=== PATIENT | female | born 1960 | race Caucasian/White ===

== ENCOUNTER → 2016-10-03 | Outpatient (CLI) | payer BC ==
[2016-09-18 15:00] VITALS: BP 95/53
[~2016-10-03] MED LIST: ACET325T9 PO; CITA20TA5 PO; CLOP75TA27 PO; FERR325T31 PO; Fentanyl TD; GABA-586 PO; GABA800T2 PO; HYDR-2666 PO; INSU100C4 SQ; INSU100V13 SQ; INSU100V8 SQ; Insulin Detemir SQ; LEVE10007 PO; LEVE100S8 PO; LISI10TA2 PO; METH-38 PO; MULT-98 PO; NAPR500T3 PO; ONDA4TAB10 SL; OXYC-323 PO; POTA20TA12 PO; PRAV20TA2 PO; TOPI100T39 PO; TOPI50TA38 PO; VENL75CA PO; ZOLP10TA4 PO
--- NOTE | 2016-10-03 11:05 | KCIC ---
LUMBAR SPINE, THREE VIEWS, 10/03/2016: History: Back pain, recent fall, previous surgery Comparison is made to a study from 08/13/2016. There are bilateral pedicle screws at L4, L5 and S1 attached to longitudinally oriented posterior fixation rods. Partially radiopaque disc spacers are present at L4-5 and L5-S1. These findings are unchanged. There is grade 1 spondylolisthesis at L4-5 and L5-S1, also unchanged. No recent fracture or new abnormality is identified. Moderate aortoiliac calcific plaquing is present. IMPRESSION: 1. Previous posterior spinal fusion with instrumentation from L4 through S1. 2. Grade 1 spondylolisthesis at L4-5 and L5-S1. 3. No significant change since 08/13/2016. Electronically signed by: Flo Good MD (Oct 03, 2016 11:00:44)
== END | disposition home or self-care (01) ==
LOC: KCIC 10:19
PROVIDERS: ATTEND Neurological Surgery
DX: M54.5 Low back pain (principal); W00.0XXA Fall on same level due to ice and snow, initial encounter; M43.16 Spondylolisthesis, lumbar region
CPT/HCPCS: 72100

== ENCOUNTER → 2017-10-29 | Outpatient (CLI) | payer MEDICARE ==
[~2017-10-29] MED LIST changes: -ACET325T9 PO; -CITA20TA5 PO; -CLOP75TA27 PO; -FERR325T31 PO; -Fentanyl TD; -GABA-586 PO; -GABA800T2 PO; -HYDR-2666 PO; -INSU100C4 SQ; -INSU100V13 SQ; -INSU100V8 SQ; -Insulin Detemir SQ; -LEVE10007 PO; -LEVE100S8 PO; +LIDOCAINE 2%/EPI 1:100,000 20 ML VIAL. IJ; -LISI10TA2 PO; -METH-38 PO; -MULT-98 PO; -NAPR500T3 PO; -ONDA4TAB10 SL; -OXYC-323 PO; -POTA20TA12 PO; -PRAV20TA2 PO; -TOPI100T39 PO; -TOPI50TA38 PO; -VENL75CA PO; -ZOLP10TA4 PO
== END | disposition home or self-care (01) ==
LOC: US 13:37
DX: C50.812 Malignant neoplasm of overlapping sites of left female breast (principal); E78.00 Pure hypercholesterolemia, unspecified; E11.9 Type 2 diabetes mellitus without complications; F41.9 Anxiety disorder, unspecified; F32.9 Major depressive disorder, single episode, unspecified; D64.9 Anemia, unspecified; Z87.39 Personal history of other diseases of the musculoskeletal system and connective tissue; Z86.69 Personal history of other diseases of the nervous system and sense organs; Z86.73 Personal history of transient ischemic attack (TIA), and cerebral infarction without residual deficits; Z90.49 Acquired absence of other specified parts of digestive tract; Z90.710 Acquired absence of both cervix and uterus
CPT/HCPCS: 19081; 76942; 77065; 88305; 88361; C1713

== ENCOUNTER → 2017-11-11 | Outpatient (CLI) | payer MEDICARE | END | disposition home or self-care (01) | LOC: NM 09:03 | DX: C50.912 Malignant neoplasm of unspecified site of left female breast (principal); M54.9 Dorsalgia, unspecified; E11.9 Type 2 diabetes mellitus without complications; R56.9 Unspecified convulsions; Z87.891 Personal history of nicotine dependence | CPT/HCPCS: 71046; 78306; 96374; A9503 ==

== ENCOUNTER 2017-12-04 08:33 | Observation (INO) | payer MEDICARE ==
[2017-12-04] MEDS: LIDOCAINE WITH 8.4% SOD BICARB 3 ML DISP.SYRIN. INJ ×3 (08:30→11:35)
[~2017-12-04 08:33] MED LIST changes: +IV RINGERS,LACTATED 1000ML 1,000 ML IV; +LIDOCAINE 1% PF 2 ML VIAL. ID; -LIDOCAINE 2%/EPI 1:100,000 20 ML VIAL. IJ; +MORPHINE SULFATE 2 MG/ML DISP.SYRIN. IV; +fentaNYL PF VIAL 100 MCG/2 ML VIAL IV
[2017-12-04 09:34] LABS: ADD MAN DIFF? NO
[2017-12-04 09:40] LABS: BASO # 0.1 x10^3/uL (0.0-0.2); BASO % 1 % (0-3); EOS # 0.4 x10^3/uL (0.0-0.7); EOS % 5 % (0-3); HEMATOCRIT 39.1 % (36.0-47.0); HEMOGLOBIN 13.2 g/dL (12.0-15.5); LYMPH # 2.6 x10^3/uL (1.0-4.8); LYMPH % 31 % (24-48); MEAN CORPUSCULAR HEMOGLOBIN 30 pg (25-35); MEAN CORPUSCULAR HGB CONC 34 g/dL (31-37); MEAN CORPUSCULAR VOLUME 89 fL (79-100); MONO # 0.6 x10^3/uL (0.0-1.1); MONO % 7 % (0-9); NEUT # 4.8 x10^3uL (1.8-7.7); NEUT % 56 % (31-73); PLATELET COUNT 236 x10^3/uL (140-400); RED BLOOD COUNT 4.37 x10^6/uL (3.50-5.40); RED CELL DISTRIBUTION WIDTH 13.2 % (11.5-14.5); WHITE BLOOD COUNT 8.6 x10^3/uL (4.0-11.0)
[2017-12-04 09:51] LABS: ANION GAP 11 (6-14); BLOOD UREA NITROGEN 7 mg/dL (7-20); BUN/CREATININE RATIO 7 (6-20); CARBON DIOXIDE 27 mmol/L (21-32); CHLORIDE 103 mmol/L (98-107); GFR 56.9; GLUCOSE 108 mg/dL (70-99); POTASSIUM 3.4 mmol/L (3.5-5.1); SODIUM 141 mmol/L (136-145)
[2017-12-04 10:01] LABS: ALBUMIN 3.5 g/dL (3.4-5.0); ALBUMIN/GLOBULIN RATIO 0.9 (1.0-1.7); ALK PHOS 72 U/L (46-116); ALT (SGPT) 27 U/L (14-59); AST (SGOT) 16 U/L (15-37); TOTAL BILIRUBIN 0.3 mg/dL (0.2-1.0); TOTAL PROTEIN 7.4 g/dL (6.4-8.2)
[2017-12-04] MEDS ORDERED: PROPOFOL 20 ML IV (11:45)
[2017-12-04] MEDS ORDERED: fentaNYL PF VIAL 100 MCG/2 ML VIAL ×3 (11:45→15:59)
[2017-12-04] MEDS ORDERED: LIDOCAINE 1% PF 5 ML VIAL. (11:45)
[2017-12-04] MEDS ORDERED: ONDANSETRON PF 4 MG/2 ML VIAL. (12:56)
[2017-12-04] MEDS ORDERED: DEXAMETHASONE SOD PHOS 20 MG/5 ML VIAL. (12:56)
[2017-12-04] MEDS ORDERED: MIDAZOLAM HCL/PF 2 MG/2 ML VIAL. (12:56)
[2017-12-04] MEDS: ISOSULFAN BLUE 50 MG/5 ML VIAL. SQ (13:37)
[2017-12-04] MEDS: BUPIVACAINE-EPI 0.25%-1:200000 50 ML VIAL. (13:37)
[2017-12-04] MEDS ORDERED: SEVOFLURANE 61 TO 120 MINUTES. IH (14:43)
[2017-12-04] MEDS ORDERED: DEXTROSE 50% 25 GM / 50ML DISP.SYRIN. IV (15:30)
[2017-12-04] MEDS ORDERED: oxyCODONE/APAP 5/325 1 TAB TABLET PO (15:30)
[2017-12-04] MEDS ORDERED: ONDANSETRON PF 4 MG/2 ML VIAL. IV (15:30)
[2017-12-04] MEDS ORDERED: MORPHINE SULFATE 4 MG/ML DISP.SYRIN. IV ×2 (15:30→16:15)
[2017-12-04] MEDS ORDERED: 0.9 % SODIUM CHLORIDE 10 ML DISP.SYRIN. IV (15:30)
[2017-12-04] MEDS ORDERED: ZOLPIDEM 5 MG TABLET. PO (15:45)
[2017-12-04] MEDS: fentaNYL PF VIAL 100 MCG/2 ML VIAL IV ×4 (15:50→16:16)
[2017-12-04] MEDS ORDERED: PROCHLORPERAZINE 10 MG/2 ML VIAL. (16:07)
[2017-12-04] MEDS: PROCHLORPERAZINE 10 MG/2 ML VIAL. IV (16:17)
[2017-12-04 16:46] LABS: POC GLUCOSE 225 mg/dL (70-99)
[2017-12-04] MEDS: MORPHINE SULFATE 4 MG/ML DISP.SYRIN. IV (16:57)
[2017-12-04] MEDS: IV 1/2 NORMAL SALINE 1,000 ML IV (16:58)
[2017-12-04] MEDS: INSULIN ASPART 300 UNITS/3 ML INSULN.PEN SQ (17:00)
[2017-12-04] MEDS: oxyCODONE/APAP 5/325 1 TAB TABLET PO (19:28)
[2017-12-04] MEDS: ATORVASTATIN CALCIUM 10 MG TABLET. PO (21:04)
[2017-12-04] MEDS: GABAPENTIN 400 MG CAPSULE. PO (21:04)
[2017-12-04] MEDS: TOPIRAMATE 100 MG TABLET. PO (21:04)
[2017-12-04] MEDS: INSULIN DETEMIR 300 UNITS/3 ML INSULN.PEN. SQ (21:27)
[2017-12-05] MEDS: oxyCODONE/APAP 5/325 1 TAB TABLET PO ×3 (02:20→12:09)
[2017-12-05] MEDS: IV 1/2 NORMAL SALINE 1,000 ML IV (04:07)
[2017-12-05 06:42] LABS: POC GLUCOSE 260 mg/dL (70-99)
[2017-12-05 06:42] LABS: POC GLUCOSE 401 mg/dL (70-99)
[2017-12-05] MEDS: CITALOPRAM 20 MG TABLET. PO (08:16)
[2017-12-05] MEDS: GABAPENTIN 400 MG CAPSULE. PO ×2 (08:16→14:35)
[2017-12-05] MEDS: INSULIN ASPART 300 UNITS/3 ML INSULN.PEN SQ ×3 (08:19→13:08)
[2017-12-05 10:57] LABS: POC GLUCOSE 221 mg/dL (70-99)
[2017-12-05 13:05] LABS: POC GLUCOSE 182 mg/dL (70-99)
== END 2017-12-05 15:41 | disposition home or self-care (01) ==
LOC: SURG 08:33 → 4 SOUTHEST 16:00
DX: C50.912 Malignant neoplasm of unspecified site of left female breast (principal); E78.5 Hyperlipidemia, unspecified; I10 Essential (primary) hypertension; M79.7 Fibromyalgia; E11.9 Type 2 diabetes mellitus without complications; Z90.10 Acquired absence of unspecified breast and nipple; Z90.710 Acquired absence of both cervix and uterus; Z82.49 Family history of ischemic heart disease and other diseases of the circulatory system; Z79.899 Other long term (current) drug therapy; Z88.8 Allergy status to other drugs, medicaments and biological substances
CPT/HCPCS: 19281; 36415; 38792; 76098; 80053; 82962; 85025; 88307; 88331; 88342; 96372; 96374; 99406; A9541; G0378; G0379; J0780; J1100; J1815; J2250; J2270; J2405; J2704; J3010; Q9968

== ENCOUNTER → 2018-03-19 | Outpatient (CLI) | payer MEDICARE ==
[2018-03-19] MEDS: IOHEXOL 240 MG/ML 50ML VIAL. PO (10:15)
[2018-03-19] MEDS: IOHEXOL 300 MG/ML 100ML VIAL. IV (10:15)
[2018-03-19 11:13] LABS: ANION GAP 9 (6-14); BLOOD UREA NITROGEN 7 mg/dL (7-20); CALCIUM 9.8 mg/dL (8.5-10.1); CARBON DIOXIDE 25 mmol/L (21-32); CHLORIDE 101 mmol/L (98-107); CREATININE 0.9 mg/dL (0.6-1.0); GFR 64.3; GLUCOSE 100 mg/dL (70-99); POTASSIUM 4.6 mmol/L (3.5-5.1); SODIUM 135 mmol/L (136-145)
== END | disposition home or self-care (01) ==
LOC: CT 09:29
DX: C50.912 Malignant neoplasm of unspecified site of left female breast (principal); I10 Essential (primary) hypertension; E11.9 Type 2 diabetes mellitus without complications; N20.0 Calculus of kidney; K40.90 Unilateral inguinal hernia, without obstruction or gangrene, not specified as recurrent; I25.10 Atherosclerotic heart disease of native coronary artery without angina pectoris; Z17.0 Estrogen receptor positive status [ER+]
CPT/HCPCS: 36415; 71260; 74177; 80048; Q9966; Q9967

== ENCOUNTER → 2018-06-29 | Outpatient (CLI) | payer MEDICARE ==
[2017-12-05 14:39] VITALS: BP 97/59
[~2018-06-29] MED LIST changes: +ACET325T9 PO; +CITA20TA6 PO; +CLOP75TA57 PO; +FERR-36 PO; +Fentanyl TD; +GABA-586 PO; +GABA800T2 PO; +HYDR-2758 PO; +INSU100C4 SQ; +INSU100V13 SQ; +INSU100V8 SQ; -IV RINGERS,LACTATED 1000ML 1,000 ML IV; +Insulin Detemir SQ; +LETR2.5T18 PO; +LEVE10007 PO; +LEVE100S8 PO; -LIDOCAINE 1% PF 2 ML VIAL. ID; +LISI10TA2 PO; +METH-38 PO; -MORPHINE SULFATE 2 MG/ML DISP.SYRIN. IV; +MULT-98 PO; +NAPR-514 PO; +ONDA4TAB10 SL; +OXYC-323 PO; +POTA20TA12 PO; +PRAV20TA2 PO; +PRAV40TA2 PO; +TOPI100T42 PO; +TOPI50TA38 PO; +VENL75CA PO; +ZOLP10TA PO; +ZOLP10TA4 PO; -fentaNYL PF VIAL 100 MCG/2 ML VIAL IV
--- NOTE | 2018-06-29 10:07 | RAD ---
EXAM: CT Chest without IV contrast CLINICAL HISTORY: MALIGNANT NEOPLASM OF LEFT BREAST COMPARISON: 03/27/2018 TECHNIQUE: CT of the chest without intravenous contrast. Axial, coronal and sagittal reformatted images were generated. ---PQRS compliance statement - One or more of the following individualized dose reduction techniques were utilized for this study: 1. Automated exposure control 2. Adjustment of the mA and/or kV according to patient size 3. Use of iterative reconstruction technique--- FINDINGS: Lack of intravenous contrast limits evaluation of solid organs, vasculature, and lymph nodes. Chest: The heart is not enlarged. Changes of ASD closure device are seen. No pericardial effusion. Coronary artery calcifications are seen. Atherosclerotic calcifications of aorta are noted. No pleural effusion or pneumothorax. No mediastinal or hilar lymphadenopathy by size criteria although a few subcentimeter lymph nodes are seen.. No axillary lymphadenopathy. Postsurgical changes of the left breast are seen with collection seen in the lateral left breast, stable. Associated left breast skin thickening may be from radiation therapy. A 5 mm fissural lung nodule (image 27) is stable. A 5 mm medial right lower lobe lung nodule (image 31) is stable. Previously seen wedge-shaped groundglass opacity in the left upper lobe is no longer seen, replaced by subpleural reticular opacities and associated pleural thickening. This may be from radiation therapy. Right lower lobe calcified granuloma is noted. No definite suspicious new or enlarging lung nodules seen. Visualized Upper abdomen: Nonobstructing left upper pole and interpolar renal calculi are seen. Scattered calcified granuloma within the spleen. Small splenule is incidentally seen. Cholecystectomy clips are noted. Bones: Visualized osseous structures are grossly stable. IMPRESSION: 1. The previously seen right-sided lung nodules are grossly stable. This can be followed to establish one year stability. 2. Left upper lobe groundglass opacity has resolved, now replaced by subpleural reticular opacities with associated pleural thickening, possibly post radiation change. 3. Nonobstructing left renal calculi. Electronically signed by: Mamadou Lozano MD (06/29/2018 10:04 AM) [facility]
== END | disposition home or self-care (01) ==
LOC: CT 09:13
PROVIDERS: ATTEND Internal Medicine Hematology & Oncology
DX: R91.8 Other nonspecific abnormal finding of lung field (principal); I25.10 Atherosclerotic heart disease of native coronary artery without angina pectoris; I70.0 Atherosclerosis of aorta; N20.0 Calculus of kidney; D73.89 Other diseases of spleen; Z85.3 Personal history of malignant neoplasm of breast
CPT/HCPCS: 71250

== ENCOUNTER → 2018-08-11 | Outpatient (CLI) | payer MEDICARE ==
[2017-12-05 14:39] VITALS: BP 97/59
[~2018-08-11] MED LIST changes: -GABA-586 PO; +GABA300C18 PO; -GABA800T2 PO; +GABA800T3 PO; -HYDR-2758 PO; +HYDR-2761 PO; -OXYC-323 PO; +OXYC1TAB15 PO
--- NOTE | 2018-08-11 11:57 | RAD ---
DATE: 08/11/2018 EXAM: MAMMO [facility], BREAST LEFT HISTORY: Recent left breast cancer with lumpectomy and radiation therapy COMPARISON: 10/17/2017, 10/29/2017 This study was interpreted with the benefit of Computerized Aided Detection (CAD). Breast Density: HETERO The breast parenchyma is heterogenously dense, which could reduce sensitivity of mammography. Breast parenchyma level C. FINDINGS: 2-D and 3-D tomosynthesis imaging was performed in CC and MLO projections. The left lateral breast mass has been surgically removed. There is a prominent spiculated opacity in the posterolateral aspect of the left breast as best seen on left CC tomosynthesis image #20 most likely representing postsurgical change. There is generalized streaky increased density in the left breast with considerable skin thickening compatible with radiation change. A small oval-shaped nodule is present in the upper inner left breast. This is unchanged since older studies dating back to 02/28/2011. There are heterogeneous fibroglandular densities in the right breast in a nodular pattern. These appear unchanged. No new or enlarging right breast densities are seen. Multiple right breast calcifications are unchanged suggesting a benign etiology. Left breast ultrasound, 08/11/2018: The left breast was scanned as requested. There is streaky edema in the breasts as evident mammographically. At the 3:00 location approximates 7 cm from the nipple there is a complex mass. There is septated fluid collection centrally with a thickened hypoechoic rim. This process measures 3.8 x 1.4 x 4.0 cm. It probably represents postoperative seroma/hematoma with granulation tissue and scarring. This appears to correspond in location to the surgical site. At the 10:00 location approximately 7 cm from the nipple there is a small oval-shaped hypoechoic nodule measuring 9 x 5 x 8 mm. Its margins are smooth. No internal color flow is seen. It is wider than tall. This may be a complicated cyst or fibroadenoma. This probably corresponds to the stable mammographic nodule described above. No other discrete breast mass is identified. IMPRESSION: 1. Extensive mammographic and sonographic abnormalities in the left breast as described above which are likely on a postsurgical and postradiation basis. Residual or recurrent neoplasm cannot be excluded. Clinical and imaging follow-up is suggested. 2. Stable right mammograms without evidence of malignancy. BI-RADS CATEGORY: 3 PROBABLY BENIGN FINDING(S)-SHORT INTERVAL FOLLOW-UP SUGGESTED RECOMMENDED FOLLOW-UP: 6M 6 MONTH FOLLOW-UP PQRS compliance statement: Patient information was entered into a reminder system with a target due date for the next mammogram. Mammography is a sensitive method for finding small breast cancers, but it does not detect them all and is not a substitute for careful clinical examination. A negative mammogram does not negate a clinically suspicious finding and should not result in delay in biopsying a clinically suspicious abnormality. "Our facility is accredited by the [employer] Mammography Program."
== END | disposition home or self-care (01) ==
LOC: MAMMO 09:30
PROVIDERS: ATTEND Internal Medicine Hematology & Oncology
DX: N64.4 Mastodynia (principal); M81.0 Age-related osteoporosis without current pathological fracture; Z85.3 Personal history of malignant neoplasm of breast; Z90.12 Acquired absence of left breast and nipple
CPT/HCPCS: 76641; 77066; G0279; 77062

== ENCOUNTER → 2018-12-24 | Outpatient (CLI) | payer MEDICARE ==
[2017-12-05 14:39] VITALS: BP 97/59
[~2018-12-24] MED LIST changes: +DENO60DI SQ; +FEMARA2.5 MG PO; -GABA800T3 PO; +GABA800T5 PO; -LETR2.5T18 PO
--- NOTE | 2018-12-24 10:00 | RAD ---
CT of the chest without contrast, 12/24/2018: HISTORY: Breast cancer Noncontrast scans were obtained as requested and compared to a study from 06/29/2018. There is moderate calcific plaquing of the thoracic aorta without evidence of aneurysm. Coronary artery calcifications are present. There is a surgical implant in the region of the intra-atrial septa. Calcified mediastinal and right hilar lymph nodes are evident compatible with old granulomatous disease. Several small mediastinal lymph nodes are unchanged. No mediastinal adenopathy is evident. There is an irregular calcification in the right lower lobe which is presumably due to old granulomatous disease. An additional tiny unchanged dense right middle lobe nodule is probably a granuloma. A tiny perifissural nodule seen on image 24 of series #2 is unchanged. This appearance is most commonly due to an intrapulmonary lymph node or small vessel. There is an unchanged subpleural linear opacity medially in the right lower lobe as seen on image 27 of series #2. The shape suggests this may be a scar. No new pulmonary abnormality is seen. There is no evidence of pleural fluid. There is persistent skin thickening involving the left breast with streaky underlying breast opacities, compatible with post radiation change. A 3.3 cm encapsulated fluid collection within the posterolateral aspect of the left breast persists. It appears to have decreased slightly in size. This is most likely a postoperative fluid collection such as a seroma/hematoma. No axillary or internal mammary adenopathy is evident. Tiny left renal calcifications are again noted. There are mild scattered degenerative changes in the spine. IMPRESSION: 1. Old healed granulomatous disease in the chest. 2. Stable tiny right lung opacities as described above. 3. Stable post therapeutic left breast findings. 4. No new chest abnormality is detected. PQRS Compliance Statement: One or more of the following individualized dose reduction techniques were utilized for this examination: 1. Automated exposure control 2. Adjustment of the mA and/or kV according to patient size 3. Use of iterative reconstruction technique Electronically signed by: Flo Good MD (12/24/2018 9:57 AM) [facility]
== END | disposition home or self-care (01) ==
LOC: CT 08:49
PROVIDERS: ATTEND Internal Medicine Hematology & Oncology
DX: R91.1 Solitary pulmonary nodule (principal); M47.814 Spondylosis without myelopathy or radiculopathy, thoracic region; N28.89 Other specified disorders of kidney and ureter; M81.0 Age-related osteoporosis without current pathological fracture; Z85.3 Personal history of malignant neoplasm of breast
CPT/HCPCS: 71250

== ENCOUNTER → 2019-01-18 | Outpatient (CLI) | payer MEDICARE ==
[2017-12-05 14:39] VITALS: BP 97/59
--- NOTE | 2019-01-18 13:48 | RAD ---
DATE: 01/18/2019 EXAM: DIGITAL DIAGNOSTIC LT HISTORY: Invasive ductal carcinoma diagnosed in 2018. COMPARISON: 02/28/2011, 10/17/2017, 10/29/2017, 08/11/2018 mammographic images This study was interpreted with the benefit of Computerized Aided Detection (CAD). Breast Density: HETERO The breast parenchyma is heterogenously dense, which could reduce sensitivity of mammography. Breast parenchyma level C. FINDINGS: Distortion related to left lumpectomy noted. No suspicious calcifications. No suspicious new distortion or mass. IMPRESSION: Stable postoperative left breast. BI-RADS CATEGORY: 2 BENIGN FINDING(S) RECOMMENDED FOLLOW-UP: 6M 6 MONTH FOLLOW-UP PQRS compliance statement: Patient information was entered into a reminder system with a target due date in 6 months at the time of annual screening for the next mammogram. Mammography is a sensitive method for finding small breast cancers, but it does not detect them all and is not a substitute for careful clinical examination. A negative mammogram does not negate a clinically suspicious finding and should not result in delay in biopsying a clinically suspicious abnormality. "Our facility is accredited by the [employer] Mammography Program."
--- NOTE | 2019-01-18 16:27 | RAD ---
Examination: BREAST LEFT History: Left breast cancer. Follow-up of previous ultrasound abnormal findings. Comparison/Correlation: 08/11/2018 left breast ultrasound Findings: Limited left breast ultrasound exam was performed. At the 3:00 region, there is a 3 cm x 3.8 cm x 0.7 cm tall septated fluid collection which is slightly decreased in the interval. At the 10:00 region 7 cm from nipple, there is a 0.90 cm 0.4 cm tall by 0.8 cm septated structure with internal echoes. This likely represents a complex cyst. It is unchanged compared to prior exam. No flow within it. Subcutaneous edema is noted involving the left breast 12:00 region but is mild. Benign-appearing left axillary lymph nodes are present. Impression: BI-RADS Category 3-probably benign. Ultrasound follow-up of the time of annual screening examination is recommended to assess stability of findings present. Electronically signed by: Sonido Avalos MD (01/18/2019 4:24 PM) [facility]
--- NOTE | 2019-01-19 08:53 | RAD ---
Addendum: The original report provided BI-RADS category 2. This should have been BI-RADS Category 3 as the patient did have an ultrasound examination on the same day for which findings will need a 6 month ultrasound follow-up. DICTATED AND SIGNED BY: NIGEL MORALES MD DATE: 01/18/19 1623 CC: ELIO WEISS MD; ADELA ROQUE MD ~ DATE: 01/18/2019 EXAM: DIGITAL DIAGNOSTIC LT HISTORY: Invasive ductal carcinoma diagnosed in 2018. COMPARISON: 02/28/2011, 10/17/2017, 10/29/2017, 08/11/2018 mammographic images This study was interpreted with the benefit of Computerized Aided Detection (CAD). Breast Density: HETERO The breast parenchyma is heterogenously dense, which could reduce sensitivity of mammography. Breast parenchyma level C. FINDINGS: Distortion related to left lumpectomy noted. No suspicious calcifications. No suspicious new distortion or mass. IMPRESSION: Stable postoperative left breast. BI-RADS CATEGORY: 2 BENIGN FINDING(S) RECOMMENDED FOLLOW-UP: 6M 6 MONTH FOLLOW-UP PQRS compliance statement: Patient information was entered into a reminder system with a target due date in 6 months at the time of annual screening for the next mammogram. Mammography is a sensitive method for finding small breast cancers, but it does not detect them all and is not a substitute for careful clinical examination. A negative mammogram does not negate a clinically suspicious finding and should not result in delay in biopsying a clinically suspicious abnormality. "Our facility is accredited by the [employer] Mammography Program." [email or web address]
== END | disposition home or self-care (01) ==
LOC: MAMMO 10:37
PROVIDERS: ATTEND Internal Medicine Hematology & Oncology
DX: N63.20 Unspecified lump in the left breast, unspecified quadrant (principal); Z17.0 Estrogen receptor positive status [ER+]; Z85.3 Personal history of malignant neoplasm of breast
CPT/HCPCS: 76641; 77065; G0279; 77061

== ENCOUNTER → 2019-02-04 | Outpatient (CLI) | payer MEDICARE ==
[2017-12-05 14:39] VITALS: BP 97/59
--- NOTE | 2019-02-04 11:21 | RAD ---
MR#: [id number] Date of Study: 02/04/2019 Ordering Physician: SILVANA SUH, Referring Physician: SILVANA SUH, Tech: Portia Gerardo RDMS, [place], RTR APPROVED REPORT Patient Location : OUT-PATIENT Indications Lower Extremity Pain : Bilateral Findings Grayscale images of the bilateral saphenofemoral junctions do not reveal any obvious evidence of thro mbus. The right great saphenous vein measures 5.2 mm and the left great saphenous vein measures 4.5 mm. Bot h the bilateral greater and lesser saphenous veins do not show any evidence of reflux. Critical Notification Critical Value: No <Conclusion> 1. Negative for reflux in the bilateral greater and lesser saphenous veins. Signed by : Angel Sifuentes, Electronically Approved : 02/04/2019 11:20:44
--- NOTE | 2019-02-04 11:34 | CARD ---
MR#: [id number] Date of Study: 02/04/2019 Ordering Physician: SILVANA SUH, Referring Physician: SILVANA SUH, Tech: Portia Admas APPROVED REPORT EXAM: Two-dimensional and M-mode echocardiogram with Doppler and color Doppler. Other Information Quality : AverageHR: 68bpm Rhythm : NSR INDICATION PFO RISK FACTORS Hyperlipidemia Diabetes Smoking 2D DIMENSIONS RVDd3.1 (2.9-3.5cm)Left Atrium(2D)3.6 (1.6-4.0cm) IVSd1.0 (0.7-1.1cm)Aortic Root(2D)3.0 (2.0-3.7cm) LVDd4.7 (3.9-5.9cm)LVOT Diameter2.0 (1.8-2.4cm) PWd0.9 (0.7-1.1cm)LVDs3.1 (2.5-4.0cm) FS (%) 34.3 %SV63.7 ml LVEF(%)63.3 (>50%) Aortic Valve AoV Peak Stephan.173.5cm/sAoV VTI39.1cm AO Peak GR.12.0mmHgLVOT Peak Stephan.109.7cm/s LVOT VTI 27.67cmAO Mean GR.6mmHg COLLEEN (VMAX)1.14st1EMF (VTI)2.27cm2 Mitral Valve MV E Gjtbjmiv99.8cm/sMV DECEL WXBS199kx MV A Jumuptpg96.0cm/sMV PGM35jv E/A Ratio0.9MVA (PHT)3.52cm2 TDI E/Lateral E'10.3E/Medial E'9.7 Pulmonary Valve PV Peak Kvywhjnd364.2cm/sPV Peak Grad.4mmHg Tricuspid Valve TR P. Uztuwlxf249zm/sRAP SYRIYXMC1xbAu TR Peak Gr.07ioCoGFUV16inHs Pulmonary Vein S1 Cgocumef51.8cm/sD2 Uxbvrwrl24.5cm/s PVa [id number] LEFT VENTRICLE The left ventricle is normal size. There is normal left ventricular wall thickness. The left ventricu lar systolic function is normal and the ejection fraction is within normal range. The Ejection Fracti on is >55%. There is normal LV segmental wall motion. Transmitral Doppler flow pattern is Grade I-abn ormal relaxation pattern. RIGHT VENTRICLE The right ventricle is normal size. There is normal right ventricular wall thickness. The right ventr icular systolic function is normal. ATRIA The left atrium size is normal. The right atrium size is normal. The interatrial septum is intact wit h no evidence for an atrial septal defect or patent foramen ovale as noted on 2-D or Doppler imaging. AORTIC VALVE The aortic valve is calcified but opens well. Doppler and Color Flow revealed no significant aortic r egurgitation. There is no significant aortic valvular stenosis. MITRAL VALVE The mitral valve is normal in structure and function. Mitral annular calcification is mild to moderat e. There is no evidence of mitral valve prolapse. There is no mitral valve stenosis. Doppler and Drexel r-flow revealed trace mitral regurgitation. TRICUSPID VALVE The tricuspid valve is normal in structure and function. Doppler and Color Flow revealed no tricuspid valve regurgitation noted with an estimated PAP of 24 mmHg. There is no tricuspid valve stenosis. PULMONIC VALVE The pulmonic valve is not well visualized. Doppler and Color Flow revealed trace pulmonic valvular re gurgitation. There is no pulmonic valvular stenosis. GREAT VESSELS The aortic root is normal in size. The IVC is normal in size and collapses >50% with inspiration. PERICARDIAL EFFUSION There is no evidence of significant pericardial effusion. Critical Notification Critical Value: No <Conclusion> The left ventricular systolic function is normal and the ejection fraction is within normal range. Th e Ejection Fraction is >55%. There is normal LV segmental wall motion. Signed by : Angel Sifuentes, Electronically Approved : 02/04/2019 11:34:35
== END | disposition home or self-care (01) ==
LOC: ECHO 08:00
PROVIDERS: ATTEND Internal Medicine Cardiovascular Disease
DX: I35.8 Other nonrheumatic aortic valve disorders (principal); I10 Essential (primary) hypertension; E11.9 Type 2 diabetes mellitus without complications; F17.200 Nicotine dependence, unspecified, uncomplicated
CPT/HCPCS: 93306; 93970

== ENCOUNTER 2019-06-25 07:36 | Emergency (ER) | payer MEDICARE ==
[~2019-06-25] VITALS: Ht 165.1 cm; Wt 66.7 kg
--- NOTE | 2019-06-25 08:57 | PHYS DOC ---
Past Medical History Past Medical History: Alcoholism, Depression, Diabetes-Type I, Diverticulitis, Diverticulosis, Seizure, Stroke Past Surgical History: Cholecystectomy, Other Additional Past Surgical Histo: hernia repair, colostomy placement/reversal Alcohol Use: Sober Additional Information: "I've been sober for four years." Drug Use: Marijuana Adult General Chief Complaint Chief Complaint: HEAD INJURY/TRAUMA HPI HPI Patient is a 58 year old right-handed female who presents with complaining of a fall. Patient states she had an accidental fall in her garage and fell backward concrete area without loss of consciousness. Patient complaining of headache, pain in her religion and left palm and rated her pain 8/10. Patient denies focal neuro deficit, nausea and vomiting, fever and chills, blurred vision. Review of Systems Review of Systems Constitutional: Denies fever or chills [] Eyes: Denies change in visual acuity, redness, or eye pain [] HENT: Denies nasal congestion or sore throat [] Respiratory: Denies cough or shortness of breath [] Cardiovascular: No additional information not addressed in HPI [] GI: Denies abdominal pain, nausea, vomiting, bloody stools or diarrhea [] : Denies dysuria or hematuria [] Musculoskeletal: Reports back pain or joint pain Integument: Denies rash or skin lesions [] Neurologic: Denies focal weakness or sensory changes, reports headache[] Endocrine: Denies polyuria or polydipsia [] All other systems were reviewed and found to be within normal limits, except as documented in this note. Current Medications Current Medications Current Medications Medications (Trade) Dose Ordered Sig/[facility] Start Time Stop Time Status Last Admin Dose Admin Ketorolac Tromethamine (Toradol Im) 60 mg 1X ONCE 06/25/19 09:00 06/25/19 09:01 DC 06/25/19 09:01 60 MG Allergies Allergies Allergies Coded Allergies Type Severity Reaction Last Updated Verified cortisone Allergy Intermediate Hives 12/04/17 Yes metoclopramide HCl Allergy Intermediate Rash 12/04/17 Yes Physical Exam Physical Exam Constitutional: Well developed, well nourished, mild distress, non-toxic appearance. [] HENT: Normocephalic, 5 x 5 cm hematoma on the occipital area Eyes: PERRLA, EOMI, conjunctiva normal, no discharge. [] Neck: Normal range of motion, no tenderness, supple, no stridor. [] Cardiovascular:Heart rate regular rhythm, no murmur [] Lungs & Thorax: Bilateral breath sounds clear to auscultation [] Abdomen: Bowel sounds normal, soft, no tenderness, no masses, no pulsatile masses. [] Skin: Warm, dry, no erythema, no rash. [] Back: No tenderness, no CVA tenderness. [] Extremities: No tenderness, no cyanosis, no clubbing, ROM intact, no edema, left thumb without edema or erythema or deformity. [] Neurologic: Alert and oriented X 3, no focal deficits noted. [] Psychologic: Affect normal, judgement normal, mood normal. [] Current Patient Data Vital Signs Vital Signs Date Time Temp Pulse Resp B/P (MAP) Pulse Ox O2 Delivery O2 Flow Rate FiO2 06/25/19 07:50 97.9 71 18 154/67 (96) 98 Room Air 97.9 EKG EKG [] Radiology/Procedures Radiology/Procedures [][address] [address] IMAGING REPORT Signed PATIENT: RYAN OROZCO ACCOUNT: [id number] : 1960 LOCATION: ER AGE: 58 SEX: F EXAM STATUS: REG ER ORD. PHYSICIAN: ANVI CASIANO MD REASON: FALL, PAIN TO SACRUM/COCCYX PROCEDURE: SACRUM & COCCYX 3V Examination: SACRUM COCCYX 3V History: Fall, pain Comparison/Correlation: None Findings: Total 3 images of the sacrum and coccyx were obtained. Rods and screws at the L4-S1 level. Intervertebral disc spacer material at these levels also noted. Mild anterolisthesis of L5 in relation to S1 is present. No fracture or bony destruction. Mild right sacroiliac joint sclerosis is suggested. Osteopenia noted. Impression: No acute process. Electronically signed by: Sonido Morales MD (06/25/2019 9:59 AM) [facility] DICTATED and SIGNED BY: SONIDO MORALES MD DATE: 06/25/19 0959 [facility] [address] [place], [place] [id number] IMAGING REPORT Signed PATIENT: RYAN OROZCO ACCOUNT: [id number] : 1960 LOCATION: ER AGE: 58 SEX: F EXAM STATUS: REG ER ORD. PHYSICIAN: AVNI CASIANO MD REASON: fall PROCEDURE: CT HEAD AND CERVICAL SPINE WO CT HEAD AND CERVICAL SPINE WO Date: 06/25/2019 8:53 AM Clinical Indication: Pain after falling Comparison: 10/08/1950. Technique: 5 mm axial tomographic images were obtained of the head without contrast. These were viewed on brain and bone windows. CT imaging of the cervical spine was performed without contrast. Coronal and sagittal reformatted images were performed. One or more of the following dose reduction techniques were utilized: Automated exposure control (AEC), Adjustment of mA and/or kV according to patient size, Use of iterative reconstruction technique such as ASiR, CT scan done according to ALARA and image gently/image wisely HEAD FINDINGS: No intra- or extra-axial mass or fluid collection. No acute hemorrhage. The ventricles are normal in size, shape, and morphology. The de la fuente-white matter junction is normal. The basilar cisterns are patent. Small area of left frontoparietal encephalomalacia. The visualized paranasal sinuses are normal. The visualized portions of the orbits and globes are normal. The mastoid air cells are clear. No aggressive osseous lesion or fracture. Right parietal scalp swelling. CERVICAL SPINE FINDINGS: Straightening of the cervical lordosis. No acute fracture. No aggressive lytic or blastic osseous lesion. Mild multilevel degenerative disc height loss. Multilevel disc protrusions and marginal osteophytes results in multilevel mild spinal canal stenosis. Multilevel uncovertebral and facet arthrosis results in multilevel neural foraminal narrowing, worst and moderate to severe at C5-6 on the right. The thyroid gland is normal. No cervical lymphadenopathy. The visualized aerodigestive tract is unremarkable. The visualized lung apices are clear. IMPRESSION: 1. No acute intracranial process. Right parietal scalp swelling. 2. No acute osseous abnormality of the cervical spine. Electronically signed by: Lavon Pisano MD (06/25/2019 9:27 AM) [facility] DICTATED and SIGNED BY: LAVON PISANO MD DATE: 06/25/19 0927 [facility] [address] [place] [address] IMAGING REPORT Signed PATIENT: RYAN OROZCO ACCOUNT: [id number] : 1960 LOCATION: ER AGE: 58 SEX: F EXAM STATUS: REG ER ORD. PHYSICIAN: AVNI CASIANO MD REASON: thumb injury, FALL PROCEDURE: FINGER(S) LEFT Examination: FINGER(S) LEFT History: Pain, injury Comparison/Correlation: None Findings: Total of 3 images of the left thumb were obtained including PA view of the hand. A Jojo Interphalangeal joint is unremarkable. First carpometacarpal joint degenerative remodeling is notable with vacuum phenomenon and spurring. Mild narrowing of the second and third metacarpophalangeal joints noted. No fracture or bony destruction. Soft tissues are unremarkable. Distal radioulnar joint degenerative remodeling is noted. Impression: Advanced first carpometacarpal joint degenerative change. No acute fracture. Electronically signed by: Sonido Morales MD (06/25/2019 9:57 AM) [facility] DICTATED and SIGNED BY: SONIDO MORALES MD DATE: 06/25/19956 Course & Med Decision Making Course & Med Decision Making Pertinent Imaging studies reviewed. (See chart for details) discharge: I've spoken with the patient and/or caregivers. I've explained the patient's condition, diagnosis and treatment plan based on information available to me at this time. I've answered the patient's and/or caregivers questions and addressed any concerns. The patient and/or caregivers have a good understanding the patient's diagnosis, condition and treatment plan as can be expected at this point. Vital signs have been stabilized. The patient's condition is stable for discharge from the emergency department. The patient will pursue further outpatient evaluation with her primary care provider or other designated consulting physician as outlined in the discharge instructions. Patient and/or caregivers are agreeable to this plan of care and follow-up instructions have been explained in detail. The patient and/or c aregivers have received these instructions in written format and expressed understanding of these discharge instructions. The patient and her caregivers are aware that if any significant change in condition or worsening of symptoms should prompt him to immediately return to this of the closest emergency department. If an emergent department is not readily available I would encoura ge him to call 911. [place] Disclaimer [place] Disclaimer This electronic medical record was generated, in whole or in part, using a voice recognition dictation system. Departure Departure Impression: Primary Impression: Head injury Additional Impressions: Scalp hematoma Injury of coccyx Injury of thumb, left Fall at home Disposition: HOME, SELF-CARE (at 1046) Condition: IMPROVED Referrals: ELIO WEISS MD (PCP) Patient Instructions: Contusion, Fall Prevention and Home Safety, Head Injury, Adult Additional Instructions: Drink plenty of liquids Follow-up with your primary care physician in 3-5 days Return to ER if not getting better Apply ice on the affected area Scripts Acetaminophen With Codeine (TYLENOL WITH CODEINE #3 TABLET) 1 Each Tablet 1 TAB PO PRN Q6HRS PRN for PAIN, #10 TAB Prov: AVNI CASIANO MD 06/25/19 Cyclobenzaprine Hcl (CYCLOBENZAPRINE HCL) 10 Mg Tablet 1 TAB PO TID, #21 TAB Prov: AVNI CASIANO MD 06/25/19 Problem Qualifiers Primary Impression: Head injury Encounter type: initial encounter Qualified Codes: S09.90XA - Unspecified injury of head, initial encounter Additional Impressions: Scalp hematoma Encounter type: subsequent encounter Qualified Codes: S00.03XD - Contusion of scalp, subsequent encounter Injury of coccyx Encounter type: subsequent encounter Qualified Codes: S39.92XD - Unspecified injury of lower back, subsequent encounter Injury of thumb, left Encounter type: subsequent encounter Qualified Codes: S69.92XD - Unspecified injury of left wrist, hand and finger(s), subsequent encounter Fall at home Encounter type: initial encounter Qualified Codes: W19.XXXA - Unspecified fall, initial encounter; Y92.009 - Unspecified place in unspecified non- institutional (private) residence as the place of occurrence of the external cause AVNI CASIANO MD Jun 25, 2019 08:57
[2019-06-25] MEDS ORDERED: KETOROLAC 60 MG/2 ML VIAL. IM ONE (09:00)
--- NOTE | 2019-06-25 09:29 | RAD ---
CT HEAD AND CERVICAL SPINE WO Date: 06/25/2019 8:53 AM Clinical Indication: Pain after falling Comparison: 10/08/1950. Technique: 5 mm axial tomographic images were obtained of the head without contrast. These were viewed on brain and bone windows. CT imaging of the cervical spine was performed without contrast. Coronal and sagittal reformatted images were performed. One or more of the following dose reduction techniques were utilized: Automated exposure control (AEC), Adjustment of mA and/or kV according to patient size, Use of iterative reconstruction technique such as ASiR, CT scan done according to ALARA and image gently/image wisely HEAD FINDINGS: No intra- or extra-axial mass or fluid collection. No acute hemorrhage. The ventricles are normal in size, shape, and morphology. The de la fuente-white matter junction is normal. The basilar cisterns are patent. Small area of left frontoparietal encephalomalacia. The visualized paranasal sinuses are normal. The visualized portions of the orbits and globes are normal. The mastoid air cells are clear. No aggressive osseous lesion or fracture. Right parietal scalp swelling. CERVICAL SPINE FINDINGS: Straightening of the cervical lordosis. No acute fracture. No aggressive lytic or blastic osseous lesion. Mild multilevel degenerative disc height loss. Multilevel disc protrusions and marginal osteophytes results in multilevel mild spinal canal stenosis. Multilevel uncovertebral and facet arthrosis results in multilevel neural foraminal narrowing, worst and moderate to severe at C5-6 on the right. The thyroid gland is normal. No cervical lymphadenopathy. The visualized aerodigestive tract is unremarkable. The visualized lung apices are clear. IMPRESSION: 1. No acute intracranial process. Right parietal scalp swelling. 2. No acute osseous abnormality of the cervical spine. Electronically signed by: Dagoberto Pisano MD (06/25/2019 9:27 AM) [facility]
--- NOTE | 2019-06-25 10:00 | RAD ---
Examination: FINGER(S) LEFT History: Pain, injury Comparison/Correlation: None Findings: Total of 3 images of the left thumb were obtained including PA view of the hand. A Jojo Interphalangeal joint is unremarkable. First carpometacarpal joint degenerative remodeling is notable with vacuum phenomenon and spurring. Mild narrowing of the second and third metacarpophalangeal joints noted. No fracture or bony destruction. Soft tissues are unremarkable. Distal radioulnar joint degenerative remodeling is noted. Impression: Advanced first carpometacarpal joint degenerative change. No acute fracture. Electronically signed by: Sonido Avalos MD (06/25/2019 9:57 AM) [facility]
--- NOTE | 2019-06-25 10:02 | RAD ---
Examination: SACRUM COCCYX 3V History: Fall, pain Comparison/Correlation: None Findings: Total 3 images of the sacrum and coccyx were obtained. Rods and screws at the L4-S1 level. Intervertebral disc spacer material at these levels also noted. Mild anterolisthesis of L5 in relation to S1 is present. No fracture or bony destruction. Mild right sacroiliac joint sclerosis is suggested. Osteopenia noted. Impression: No acute process. Electronically signed by: Sonido Avalos MD (06/25/2019 9:59 AM) [facility]
[2019-06-25] MEDS ORDERED: CYCL10TA2 PO (10:49)
[2019-06-25] MEDS ORDERED: ACET-704 PO (10:49)
[2019-06-25 10:50] VITALS: BP 128/71
== END 2019-06-25 11:05 | disposition home or self-care (01) ==
LOC: ER 07:36
DX: S00.03XA Contusion of scalp, initial encounter (principal); S39.82XA Other specified injuries of lower back, initial encounter; R53.1 Weakness; S69.82XA Other specified injuries of left wrist, hand and finger(s), initial encounter; E10.9 Type 1 diabetes mellitus without complications; F32.9 Major depressive disorder, single episode, unspecified; Z90.49 Acquired absence of other specified parts of digestive tract; Z93.3 Colostomy status; Z86.73 Personal history of transient ischemic attack (TIA), and cerebral infarction without residual deficits; Z88.8 Allergy status to other drugs, medicaments and biological substances; W18.39XA Other fall on same level, initial encounter; Y93.89 Activity, other specified; Y92.009 Unspecified place in unspecified non-institutional (private) residence as the place of occurrence of the external cause; Y99.8 Other external cause status
CPT/HCPCS: 70450; 72125; 72220; 73140; 96372; 99284; J1885

== ENCOUNTER → 2019-08-12 | Outpatient (CLI) | payer MEDICARE ==
[~2019-08-12] MED LIST changes: +ACET-704 PO; +CYCL10TA2 PO
--- NOTE | 2019-08-12 10:56 | RAD ---
DATE: August 12, 2019 EXAM: DIGITAL DIAGNOSTIC BILATERAL HISTORY: History of left breast cancer treated with lumpectomy and radiation therapy in November 2017. COMPARISON: August 11, 2018. January 18, 2019 This study was interpreted with the benefit of Computerized Aided Detection (CAD). 2-D digital mammographic views of both breasts were performed in the CC and MLO projections. 3-D digital tomosynthesis images of both breasts were performed in the CC and MLO projections and reviewed on a computer workstation. FINDINGS: Breast Density: HETERO The breast parenchyma is heterogenously dense, which could reduce sensitivity of mammography. Breast parenchyma level C.. Postoperative changes and postradiation changes of the left breast are again evident and are unchanged. Again seen is a nodule within the medial aspect of the left breast which is stable. The right breast including the calcifications are stable. IMPRESSION: Stable mammogram. There are no mammographic indicators for new or recurrent malignancy. BI-RADS CATEGORY: 2 BENIGN FINDING RECOMMENDED FOLLOW-UP: 12M 12 MONTH FOLLOW-UP PQRS compliance statement: Patient information was entered into a reminder system with a target due date August 13, 2020 for the next mammogram. Mammography is a sensitive method for finding small breast cancers, but it does not detect them all and is not a substitute for careful clinical examination. A negative mammogram does not negate a clinically suspicious finding and should not result in delay in biopsying a clinically suspicious abnormality. "Our facility is accredited by the [employer] Mammography Program." The patient's breast density may affect the ability of mammography to detect breast cancer. There are 4 categories of breast density, A, B, C and D. Breast density A means that most of the breast tissue is replaced with adipose tissue and therefore is not dense. Breast density B means that the breast tissue is mildly dense and scattered. Breast density C means that the breast tissue is heterogeneously dense. Breast density D means that the breast tissue is very dense. Breast densities especially C and D may decrease the sensitivity of mammography to detect breast cancer. Therefore, the patient may benefit from 3-D breast mammography (3D breast tomography) as a part of their screening mammogram. Insurance may or may not pay for this additional imaging. The patient's breast density based on today's mammogram is category C.
== END | disposition home or self-care (01) ==
LOC: MAMMO 10:06
PROVIDERS: ATTEND Internal Medicine Hematology & Oncology
DX: C50.412 Malignant neoplasm of upper-outer quadrant of left female breast (principal); R92.1 Mammographic calcification found on diagnostic imaging of breast; Z17.0 Estrogen receptor positive status [ER+]
CPT/HCPCS: 77066

== ENCOUNTER → 2019-11-05 | Outpatient (CLI) | payer MEDICARE ==
--- NOTE | 2019-11-05 14:15 | KCIC ---
MRI Lumbar Spine without contrast History: Low back pain, previous fall, bilateral radiculopathy Technique: Multiplanar, multi sequential noncontrast MR imaging was performed of the lumbar spine. Comparison: None Findings: There has been posterolateral fusion with bilateral pedicle screws at L4, L5, and S1. Exam does not accurately evaluate integrity of hardware. There is grade 1 anterior spondylolisthesis at L4-5 and L5-S1. There is L5-S1 interbody graft. Conus terminates near the inferior aspect of L2. There is fairly severe narrowing of the L4-5 intervertebral disc space, mild degenerative disc disease L3-4. Not included on the axial images, there is facet degenerative change and buckling of the ligamentum flavum on the left at the T11-12 level. L1-L2: This level was not included on the axial images. Neural foramina and spinal canal are adequate. L2-L3: There is mild to moderate right facet degenerative change and mild buckling of the ligamentum flavum. There is minimal fluid in the facet articulations. Neural foramina and spinal canal are adequate. L3-L4: There is fairly severe buckling of the ligamentum flavum. There is bilateral facet degenerative change. There is a small synovial cyst in the far right lateral recess about 3 mm in size. There is fairly large focus of signal change in the left lateral recess near the intervertebral disc space level with slight extent below measuring about 11 mm transverse by 6 mm AP by about 10 mm CC, hypointense relative to CSF on the T2 sequence, difficult to determine if extradural or intradural location. There is resultant severe narrowing of the left lateral recess. There is [id number] narrowing of the central canal. Disc osteophyte complex and facet contributes to moderate narrowing of the left neural foramen, mild narrowing on the right. L4-L5: There has been posterior decompression. There is facet hypertrophic change. Spinal canal and neural foramina are adequate. L5-S1: There is bilateral facet hypertrophic change. Spinal canal is adequate. There is artifact created by hardware. Right neural foramen is adequate. There is likely [id number] narrowing of the left neural foramen from osteophytes and facet, somewhat poorly characterized due to artifact by hardware. Impression: 1. There is fairly large focus of signal change in the left lateral recess at the L3-4 level, difficult to determine if intradural or extradural location. Post contrast imaging is recommended to assess for enhancement as mass possible. If this does not enhance, this may represent etiology such as extruded or sequestered disc fragment or complex synovial cyst. There is severe left lateral recess stenosis at this level, [id number] narrowing of the central canal at this level. 2. There is posterolateral fusion hardware L4-S1. There is grade 1 anterior spondylolisthesis at L4-5 and L5-S1. 3. There is neural foramina compromise as stated greatest on the left at L3-4 and L5-S1. Electronically signed by: Dagoberto Michaud MD (11/05/2019 2:12 PM) [id number]
== END ==
LOC: KCIC MRI 13:04
PROVIDERS: ATTEND Family Medicine
DX: M43.17 Spondylolisthesis, lumbosacral region (principal); M47.27 Other spondylosis with radiculopathy, lumbosacral region; M48.07 Spinal stenosis, lumbosacral region; M25.78 Osteophyte, vertebrae
CPT/HCPCS: 72148

== ENCOUNTER → 2019-11-19 | Outpatient (CLI) | payer MEDICARE ==
[~2019-11-19] MED LIST changes: +GADOTERATE 7.5 MMOL/15ML VIAL. IVP ONE
--- NOTE | 2019-11-19 11:44 | KCIC ---
EXAMINATION: Magnetic resonance imaging (MRI) of the lumbar spine with and without contrast 11/19/2019 9:30 AM HISTORY: Low back pain. TECHNIQUE: Multiplanar multi-weighted MRI of the lumbar spine was performed with and without intravenous contrast using the standard lumbar spine protocol. Contrast information: Gadolinium based contrast. COMPARISON: None available. FINDINGS: There is grade 1 anterolisthesis of L4 on L5. Posterior fusion is identified from L4 through S1. 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 There is associated moderate to severe spinal canal stenosis with redundancy of the nerve roots above this level. Findings are exacerbated by epidural lipomatosis. There is a synovial cyst on the right which projects anteriorly from the right facet joint measuring 5 x 2 x 6 mm (AP by transverse by craniocaudal). IMPRESSION: 1. Peripheral rim enhancement is identified involving the 8 x 9 x 16 mm extra medullary, extradural mass in the left lateral recess at the L3-L4 vertebral level. Differential considerations remain similar with synovial cyst and sequestered disc remaining at the top of the differential. Electronically signed by: Ashley Jovel MD (11/19/2019 11:42 AM) [id number]
== END | disposition home or self-care (01) ==
LOC: KCIC MRI 09:19
PROVIDERS: ATTEND Family Medicine
DX: M48.061 Spinal stenosis, lumbar region without neurogenic claudication (principal); E88.2 Lipomatosis, not elsewhere classified; M48.8X6 Other specified spondylopathies, lumbar region
CPT/HCPCS: 72158; 82565; A9575

== ENCOUNTER → 2020-01-03 | Outpatient (CLI) | payer MEDICARE ==
[~2020-01-03] MED LIST changes: -GADOTERATE 7.5 MMOL/15ML VIAL. IVP ONE; +IOHEXOL 180 MG/ML 10 ML VIAL. IJ ONE
[2020-01-03 10:50] VITALS: BP 114/65
[2020-01-03 11:15] VITALS: BP 95/59
--- NOTE | 2020-01-03 11:20 | NUR ---
Pt here for Myelogram, completed recovery time requested by in cv obs lying flat. Pt alert and oriented x 3, VSS, dressing d/i. Pt provided with DC instructions, questions answered, escorted out per wheelchair, here to drive pt home. CHAPO MAYNARD Addendum: 01/03/20 at 1332 by OLGA EDMONDSON RN Disk provided to pt. CHAPO MAYNARD
--- NOTE | 2020-01-03 12:00 | RAD ---
EXAM: CT Lumbar Spine with intrathecal contrast INDICATION: Low back pain. Status post lower lumbar spinal posterior decompression and fusion at L4-S1. TECHNIQUE: Multi-detector row CT images were obtained through the lumbar spine without the use of IV contrast. Intrathecal contrast had been administered earlier the same day in anticipation of this exam. Post-processing sagittal and coronal reconstructed images were obtained for interpretation. All CT scans performed at this facility utilize dose optimization techniques as appropriate to the exam, including the following: Automated exposure control and adjustment of the mA and/or KV according to patient size (this includes techniques or standardized protocols for targeted exams where dose is indication/reason for exam). COMPARISON: Lumbar myelogram of earlier the same day, L-spine MRI of 11/19/2019 FINDINGS: The lowest fully formed disc is referred to as the L5-S1 level. ALIGNMENT: Grade 1 anterolisthesis of L4 on L5 of 8 mm is unchanged. Alignment otherwise anatomic OSSEOUS: Posterior surgical decompressive surgical changes are present including laminotomies at L4 and laminectomy at L5 along with bilateral harley and pedicle screw construct fusion at L4 through S1 with interbody grafts at L4-L5 and L5-S1. DISC SPACES: Mild disc space narrowing at L3-L4 and more apparent disc space narrowing at L4-L5 and L5-S1 are present. FACET JOINTS: Facet joints at L4-5 and L5-S1 are fused with bone graft material. No facet fracture or dislocation. SPINAL CANAL: There is severe central canal stenosis at L3-L4 due to combination of bilateral facet hypertrophy with ligamentum flavum thickening, and diffuse disc bulge. The CSF signal around the nerve roots is completely (or near completely) effaced. The coronal and sagittal reformatted images suggest the presence of a left-sided ventral extradural mass causing asymmetric deformity of the thecal sac at the level of the left L3-L4 lateral recess that likely correlates with the mass seen on MRI and which was favored to represent a sequestered disc fragment. The nerve roots in the upper lumbar spine have and undulant contour, as is often seen with high-grade stenotic lesions more distally. NEUROFORAMINA: Moderate left greater than right bilateral foraminal narrowing at L3-L4 and at L5-S1 is present. Mild bilateral foraminal narrowing at L4-L5 due to disc loss of height is present. SOFT TISSUES: Left nephrolithiasis and extensive arterial calcifications as well as calcifications in the spleen compatible with previous granulomatous disease is noted. IMPRESSION: 1. Status post posterior decompression and hardware fusion from L4 through S1, patient has severe central canal stenosis at the L3-L4 level due to a combination of disc and facet degenerative changes with a probable sequestered disc fragment at the left L3-L4 lateral recess, better shown on comparison MRI. 2. Patient also had a lumbar myelogram earlier the same day. Please see that report for additional details. Electronically signed by: Jessica Mendenhall MD (01/03/2020 11:57 AM) [id number]
--- NOTE | 2020-01-03 12:22 | RAD ---
EXAM: Lumbar myelogram INDICATION: Lumbar stenosis. TECHNIQUE: Informed consent was obtained and an appropriate procedural pause observed. Using standard sterile technique, fluoroscopic imaging guidance and local anesthesia, a 22-gauge spinal needle was advanced from a left interlaminar approach into the L2-L3 level and 13 mL of Omnipaque 180 were administered into the thecal sac. A total of 17 images were acquired for procedural documentation. Acquired images included prone AP, bilateral oblique prone AP, upright prone, and upright lateral flexion, upright lateral extension, and right lateral neutral views. Total fluoroscopy time was 1 minute. COMPARISON: MRI L-spine 11/19/2019 FINDINGS: Grade 1 anterolisthesis of L4 on L5 and surgical changes from previous posterior decompression and lumbar spinal hardware fusion spanning L4-S1 are seen along with interbody grafts at L4-5 and L5-S1. No fracture or aggressive appearing osseous lesions are seen. The spinal canal is widely patent down to the L1-L2 level. There is some waviness to the nerve roots present in the upper lumbar spine best appreciated on the bilateral oblique views. At L2-L3, a partial myelographic block is apparent with nonfilling of the central canal in any of the imaged projections at this level. Remaining levels of the lower lumbar spine fill appropriately. There is no change in alignment between the prone and upright lumbar spinal views and there is no evidence of abnormal motion with flexion or extension. The soft tissues show extensive arterial calcifications in abdominal aorta and surgical clips in the left upper quadrant abdomen. IMPRESSION: 1. High-grade partial myelographic block at the L2-L3 level status post posterior decompression and lumbar spinal fusion spanning L4-S1. 2. Upright lateral flexion and extension views of the lumbar spine show no abnormal motion. 3. Patient subsequently underwent postcontrast CT imaging of the lumbar spine later the same day. That is reported separately. Please see that report for additional details. Electronically signed by: Jessica Mendenhall MD (01/03/2020 12:19 PM) [id number]
== END | disposition home or self-care (01) ==
LOC: RAD 08:55
PROVIDERS: ATTEND Neurological Surgery
DX: M48.061 Spinal stenosis, lumbar region without neurogenic claudication (principal); N20.0 Calculus of kidney; I70.0 Atherosclerosis of aorta; Z98.890 Other specified postprocedural states
CPT/HCPCS: 72132; 72265; Q9965

== ENCOUNTER → 2020-02-11 | Outpatient (CLI) | payer MEDICARE ==
[2020-01-03 11:15] VITALS: BP 95/59
[~2020-02-11] MED LIST changes: +DOCU-153 PO; +DULA0.75 SQ; -IOHEXOL 180 MG/ML 10 ML VIAL. IJ ONE; +METH750T2 PO; +METO-239 PO
[2020-02-11 16:06] LABS: BASO # 0.1 x10^3/uL (0.0-0.2); BASO % 1 % (0-3); EOS # 0.3 x10^3/uL (0.0-0.7); EOS % 3 % (0-3); HEMATOCRIT 38.8 % (36.0-47.0); HEMOGLOBIN 13.6 g/dL (12.0-15.5); LYMPH # 3.1 x10^3/uL (1.0-4.8); LYMPH % 35 % (24-48); MEAN CORPUSCULAR HEMOGLOBIN 32 pg (25-35); MEAN CORPUSCULAR HGB CONC 35 g/dL (31-37); MEAN CORPUSCULAR VOLUME 90 fL (79-100); MONO # 0.4 x10^3/uL (0.0-1.1); MONO % 5 % (0-9); NEUT % 56 % (31-73); PLATELET COUNT 228 x10^3/uL (140-400); RED CELL DISTRIBUTION WIDTH 13.3 % (11.5-14.5)
[2020-02-11 16:18] LABS: PROTHROMBIN TIME PATIENT 12.5 SEC (11.7-14.0)
[2020-02-11 16:47] LABS: ALBUMIN 3.6 g/dL (3.4-5.0); ALBUMIN/GLOBULIN RATIO 0.9 (1.0-1.7); CALCIUM 11.9 mg/dL (8.5-10.1); CREATININE 1.7 mg/dL (0.6-1.0); GFR 30.7; POTASSIUM 3.8 mmol/L (3.5-5.1); TOTAL BILIRUBIN 0.4 mg/dL (0.2-1.0); TOTAL PROTEIN 7.4 g/dL (6.4-8.2)
== END | disposition home or self-care (01) ==
LOC: SURGPAT 14:59
PROVIDERS: ATTEND Neurological Surgery
DX: Z01.818 Encounter for other preprocedural examination (principal); Z11.59 Encounter for screening for other viral diseases; M48.061 Spinal stenosis, lumbar region without neurogenic claudication; M51.16 Intervertebral disc disorders with radiculopathy, lumbar region; Z88.8 Allergy status to other drugs, medicaments and biological substances; Z79.899 Other long term (current) drug therapy; I70.0 Atherosclerosis of aorta; I25.10 Atherosclerotic heart disease of native coronary artery without angina pectoris
CPT/HCPCS: 36415; 80053; 85025; 85610; 85730; 87641; C9803; U0003

== ENCOUNTER 2020-02-17 05:57 | Inpatient (IN) | payer MEDICARE ==
--- NOTE | 2020-02-16 16:12 | HP ---
ADMIT DATE: 02/17/2020 PREOPERATIVE HISTORY AND PHYSICAL DATE OF SURGERY: 02/17/2020. HISTORY OF PRESENT ILLNESS: The patient is a pleasant 59-year-old with low back pain and cramping, stabbing pain in the anterior thighs bilaterally. The right side is more involved than the left side. The problem started in 03/2019. She says any activity and standing causes her pain to reach 9/10. When she arises in the morning, the pain is most severe. Leaning forward or sitting helps her. She is taking oxycodone as needed. On 06/2016, she underwent an instrumented lumbar fusion from L4 to sacrum. She says that did help her. She has had physical therapy and chiropractic treatment for this problem without significant benefit. PAST MEDICAL HISTORY: Gout, cancer, headaches, stroke, wound infection. PAST SURGICAL HISTORY: Breast lumpectomy, right ankle fracture repair, perforated colon, lumbar fusion L4 through S1 with Dr. Park in 2015, and PFO closure. FAMILY HISTORY: Bleeding problems, cancer, diabetes, seizures. SOCIAL HISTORY: Retired. She is . Smokes a half a pack per day and has smoked for years. Stopped drinking alcohol 5 years ago. ALLERGIES: CORTISONE AND REGLAN. CURRENT MEDICATIONS: Ambien, calcium, Prolia, citalopram hydrobromide, gabapentin, letrozole, Levemir, multivitamin, Percocet, pravastatin, topiramate. REVIEW OF SYSTEMS: A 12-point review of systems was obtained and is noncontributory except for that mentioned above. PHYSICAL EXAMINATION: NEUROSURGERY EXAMINATION: GENERAL APPEARANCE: Alert, pleasant, no acute distress. HEENT: Head normocephalic and atraumatic. SKIN: Warm and dry. Well-healed lumbar incision. MUSCULOSKELETAL: Lumbar paraspinal muscle bulk is normal, restricted range of motion of the lumbar spine, [id number] tenderness of the lower lumbar spine with palpation, normal range of motion of the lower extremities bilaterally. EXTREMITIES: No clubbing, cyanosis or edema. NEUROLOGIC: Alert and oriented x 3, normal recent and remote memory, strength 5/5 in bilateral lower extremities, sensory was intact to light touch in lower extremities bilaterally except for decrease in the right anterior thigh, reflexes were trace and symmetric in bilateral lower extremities, positive straight leg raising on the right, forward stooped gait. IMAGING: I reviewed a lumbar myelogram and post-myelogram CT scan. Her instrumented fusion from L4 to the sacrum appears solid. She has a complete block at L3-L4, presumably from the large anterior disk herniation. This does appear to be slightly more prominent on the left side. ASSESSMENT/ PLAN: A large disc herniation at L3-L4 is responsible for the majority of her pain. With regard to treatment, she should have her removal of her hardware and then an aggressive laminectomy and decompression, discectomy at L3-L4. I outlined the surgery with her as well as the risks. We reviewed and expected postoperative course. She understands. She would like to go ahead. We will make the arrangements. LUIGI HOOK MD DR: APULA/kait JOB#: [id number] / [id number] HEMANTH
[~2020-02-17] VITALS: Ht 162.6 cm; Wt 70.0 kg
[2020-02-17] VITALS (10 sets, daily range): BP systolic 77–112; BP diastolic 49–74
[~2020-02-17 05:57] MED LIST changes: -DOCU-153 PO; -METH750T2 PO
[2020-02-17] MEDS ORDERED: BACITRACIN 50,000 UNIT in IV NORMAL SALINE 1000ML BAG 1,000 ML IRR ONE (06:00)
[2020-02-17] MEDS ORDERED: INSULIN LISPRO 100 UNIT/ML 3ML VIAL for OP,RR ONLY. SQ PRN (06:45)
[2020-02-17] MEDS ORDERED: HYDROmorphone 2 MG/ML VIAL IV PRN (07:00)
[2020-02-17] MEDS ORDERED: fentaNYL PF VIAL 100 MCG/2 ML VIAL IV PRN (07:00)
[2020-02-17] MEDS ORDERED: PROCHLORPERAZINE 10 MG/2 ML VIAL. IV PRN (07:00)
[2020-02-17] MEDS ORDERED: IV RINGERS,LACTATED 1000ML 1,000 ML IV SCH (07:00)
[2020-02-17] MEDS ORDERED: KETOROLAC 60 MG/2 ML VIAL. ONE (07:11)
[2020-02-17] MEDS ORDERED: BUPIVACAINE-EPI 0.5%-1:200000 MPF 30 ML VIAL. ONE (07:11)
[2020-02-17] MEDS ORDERED: THROMBIN TOPICAL 20,000 UNIT SPRAY.SYRN KIT TP ONE (07:11)
[2020-02-17] MEDS ORDERED: GELATIN SPONGE SIZE 100. ONE (07:11)
[2020-02-17] MEDS ORDERED: NEOSTIGMINE METHYLSULFATE 5 MG/5 ML SYRINGE. ONE (08:05)
[2020-02-17] MEDS ORDERED: fentaNYL PF VIAL 100 MCG/2 ML VIAL ONE (08:05)
[2020-02-17] MEDS ORDERED: GLYCOPYRROLATE 1 MG/5 ML VIAL. ONE ×2 (08:05→14:13)
[2020-02-17] MEDS ORDERED: MIDAZOLAM HCL/PF 2 MG/2 ML VIAL. ONE (08:06)
[2020-02-17] MEDS ORDERED: DEXAMETHASONE SOD PHOS 4 MG/ML VIAL ONE (08:06)
[2020-02-17] MEDS ORDERED: REMIFENTANIL 2 MG VIAL. IV ONE (08:06)
[2020-02-17] MEDS ORDERED: ONDANSETRON PF 4 MG/2 ML VIAL. ONE (08:07)
[2020-02-17] MEDS ORDERED: PROPOFOL 10 MG/ML (20ML) VIAL. IV ONE ×2 (08:07→13:48)
[2020-02-17] MEDS ORDERED: LIDOCAINE 2% PF 5 ML VIAL. ONE (08:07)
[2020-02-17] MEDS ORDERED: ROCURONIUM 50 MG/5 ML VIAL. ONE (08:08)
[2020-02-17] MEDS ORDERED: PROPOFOL 50 ML IV ONE ×2 (08:08→10:08)
[2020-02-17] MEDS ORDERED: PHENYLEPHRINE 10 MG/ML VIAL. ONE (08:14)
--- NOTE | 2020-02-17 09:19 | RAD ---
CT LUMBAR SPINE WO CONTRAST Indication: Lumbar stenosis Technique: Noncontrast CT imaging was performed of the lumbar spine for the purpose of surgical assistance. Multiplanar reconstruction images are submitted. One or more of the following individualized dose reduction techniques were utilized for this examination: 1. Automated exposure control 2. Adjustment of the mA and/or kV according to patient size 3. Use of iterative reconstruction technique. Comparison: January 03, [address] exam Findings: There are again L4-5 and L5-S1 interbody grafts although interbody fusion not apparent. There is again posterolateral fusion hardware with bilateral pedicle screws L4, L5, and S1. There again has been posterior decompression L4-5 and L5-S1. There is similar degree of grade 1 anterior spondylolisthesis L4-5 and L5-S1. Spinal stenosis at L3-4 is better depicted on the previous post myelogram CT exam. There is again suspected moderate narrowing of the left L3-4 neural foramen and mild narrowing on the right. There is atherosclerotic calcification of the abdominal aorta and iliac arteries, also proximal left renal artery. Lumbar vertebral body stature is maintained. There are some small calculi of the visualized left kidney, kidneys not fully evaluated. IMPRESSION: 1. Spinal stenosis at L3-4 is better visualized on previous post myelogram CT. There is again left greater than right L3-4 neural foramina compromise. 2. There is again posterolateral fusion hardware L4-S1, again grade 1 anterior spondylolisthesis L4-5 and L5-S1. There are also L4-5 and L5-S1 interbody grafts as seen previously, interbody fusion not apparent at these levels. 3. There are left renal calculi. Electronically signed by: Dagoberto Michaud MD (02/17/2020 9:16 AM) [place] [id number]
[2020-02-17] MEDS ORDERED: diphenhydrAMINE HCL 25 MG CAPSULE PO PRN (11:15)
[2020-02-17] MEDS ORDERED: MAG HYDROX/ALUMINUM HYD/SIMETH 30 ML ORAL.SUSP PO PRN (11:15)
[2020-02-17] MEDS ORDERED: MAGNESIUM HYDROXIDE 2,400 MG/30 ML ORAL.SUSP. PO PRN (11:15)
[2020-02-17] MEDS ORDERED: 0.9 % SODIUM CHLORIDE 10 ML DISP.SYRIN. IV PRN (11:15)
[2020-02-17] MEDS ORDERED: ACETAMINOPHEN 325 MG TABLET. PO PRN (11:15)
[2020-02-17] MEDS ORDERED: METHOCARBAMOL 750 MG TABLET PO PRN (11:15)
[2020-02-17] MEDS ORDERED: NON FORMULARY ITEM (Denosumab (Prolia) 60 MG) SQ SCH (11:15)
[2020-02-17] MEDS ORDERED: CALCIUM CARBONATE 500 MG TAB.CHEW PO PRN (11:15)
[2020-02-17] MEDS ORDERED: NALOXONE 0.4 MG/ML VIAL. IV PRN (11:15)
[2020-02-17] MEDS: CITALOPRAM 20 MG TABLET. PO SCH (12:00)
[2020-02-17] MEDS: METOPROLOL SUCC 24HR ER 25 MG TAB.ER.24H. PO SCH (12:00)
[2020-02-17] MEDS: DOCUSATE SODIUM 100 MG CAPSULE. PO SCH ×2 (12:00→21:25)
[2020-02-17] MEDS ORDERED: REMIFENTANIL 1 MG VIAL. IV ONE (13:18)
[2020-02-17] MEDS: GABAPENTIN 400 MG CAPSULE. PO SCH ×2 (14:00→21:25)
[2020-02-17] MEDS: fentaNYL PF VIAL 100 MCG/2 ML VIAL IV PRN ×2 (15:07→15:16)
--- NOTE | 2020-02-17 15:10 | OP ---
DATE OF SURGERY: 02/17/2020 PREOPERATIVE DIAGNOSES: 1. Severe lumbar spinal stenosis L3-L4 with sequestered disc fragment L3-L4 and lumbar radiculopathy. 2. Previous instrumented fusion L4 to sacrum. POSTOPERATIVE DIAGNOSES: 1. Severe lumbar spinal stenosis L3-L4 with sequestered disc fragment L3-L4 and lumbar radiculopathy. 2. Previous instrumented fusion L4 to sacrum. OPERATION PERFORMED: 1. Removal of hardware, L4 to sacrum. 2. Lumbar laminectomy, L3-L4. 3. Bilateral microdecompression of dura and nerve root with removal of herniated disc as well as very thickened ligamentum flavum and decompression of the spinal canal at L3-L4. The operation was done with multimodality monitoring including EMG, SSEP, we used fluoroscopy, [employer] guidance. SURGEON: Alessandro Hook M.D. WASTEWATER SUPERINTENDENT: MARISOL De La Garza assisted with the surgery. She assisted with the removal of the hardware, decompression as well as the closure. OPERATIVE INDICATIONS: The patient is a very pleasant 59-year-old who developed intractable back and bilateral leg pain along with feelings of unsteadiness and weakness in her legs. On imaging studies, she had above-mentioned findings and after failing conservative measures, I recommended lumbar surgery to decompress this region. The hardware from her previous fusion was in the way of decompressing L3-L4 and so I elected to remove this. I confirmed that there was a solid fusion. She understood the surgery and the risks, she wished to go ahead. DESCRIPTION OF PROCEDURE: Following general endotracheal anesthesia, the patient was positioned prone on the Wong table. Lumbar region prepped and draped in standard fashion. KOBY hose and AV impulse boots were applied for DVT prophylaxis. A microscope was draped. Fluoroscopy was draped and brought into field and monitoring was established. Ancef 2 grams was given less than 1 hour prior to initiation of the surgery. Using fluoroscopic guidance, her previous incision was largely opened. I dissected down through skin and subcutaneous tissue and exposed the hardware bilaterally. I then removed the screws and harley without difficulty and hemostasis throughout this portion was excellent. I then moved up to L3-L4 and placed self-retaining retractors and gradually by removing the significant scarring, which was present, was able to obtain an excellent exposure bilaterally at this level. I brought in the microscope and using the high speed air drill, I burred a hemilaminotomy first on the left and I carried this across the midline and then I went to the right side and performed the identical operation. I did trim the significant portions of the spinous process as well. I then from the right removed ligamentum flavum, which was very thickened and markedly compressing the dura and scarred to the dura. This was accomplished then the area was free and mobile. The disc was bulging slightly, but I felt that the largest portion of the herniated disc was on the left side. I went to the left side then, I completed my hemilaminotomy, removed the ligamentum flavum, gently retracted the root medially and there was a large sequestered disc fragment, which I then began to remove in a piecemeal fashion. As I worked, the entire region became very well decompressed. I then irrigated copiously with antibiotic solution, explored carefully, assured myself that the decompression was excellent and obtained excellent hemostasis. I then irrigated, closed the wound in layers with absorbable suture. The skin was closed with 4-0 subcuticular stitch. I felt the surgery went very well. ALESSANDRO HOOK MD DR: PAULA/kait JOB#: [id number] / [id number] HEMANTH
[2020-02-17] MEDS: MORPHINE SULFATE 2 MG/ML VIAL. IV PRN ×2 (16:15→16:18)
[2020-02-17] MEDS: POTASSIUM CL 20MEQ-0.45% NACL 1,000 ML IV SCH (16:55)
--- NOTE | 2020-02-17 17:28 | NUR ---
1640 Received from PACU per bed, alert/oriented, dressing to midline lumbar & left buttock with spec of bloody drainage noted, states discomfort level 100/10 as stated right arm, 9/10 back, advised that we would hold off on farther narcotics until BP maintained, admission vital signs 82/52 & 56, IVF infusing into right forearm, bilateral KOBY hose & LUZ in place for DVT prevention, incentive spirometry 1500ml, oriented to surroundings, call light in reach, side rails up x2
[2020-02-17] MEDS: fentaNYL PF VIAL 100 MCG/2 ML VIAL IVP PRN ×2 (17:55→21:27)
[2020-02-17] MEDS ORDERED: ATORVASTATIN CALCIUM 10 MG TABLET. PO SCH (21:00)
[2020-02-17] MEDS ORDERED: INSULIN GLARGINE SYRINGE. SQ SCH (21:00)
[2020-02-17] MEDS ORDERED: TOPIRAMATE 100 MG TABLET. PO SCH (21:00)
[2020-02-17] MEDS ORDERED: ZOLPIDEM 5 MG TABLET. PO SCH (21:00)
[2020-02-18 03:00] VITALS: BP 86/51
[2020-02-18] MEDS: fentaNYL PF VIAL 100 MCG/2 ML VIAL IVP PRN ×2 (03:48→06:28)
--- NOTE | 2020-02-18 04:00 | NUR ---
Patient is still unable to void . Bladder scan shows 390cc. Straight cath done for patient comfort with approximately 400cc returns Pain medication given to help patient relax and rest Addendum: 02/18/20 at 0431 by GIOVANNI PIZANO RN Amended: Links added.
[2020-02-18 06:36] VITALS: BP 104/61
[2020-02-18] MEDS ORDERED: oxyCODONE/APAP 5/325 1 TAB TABLET PO PRN (08:00)
[2020-02-18] MEDS: POTASSIUM CL 20MEQ-0.45% NACL 1,000 ML IV SCH (08:30)
--- NOTE | 2020-02-18 08:30 | NUR ---
Did not give metoprolol this am, states takes it at bedtime and letrozole not available and pt did not bring it. Will take it after this charge today.
[2020-02-18] MEDS: GABAPENTIN 400 MG CAPSULE. PO SCH (08:33)
[2020-02-18] MEDS: DOCUSATE SODIUM 100 MG CAPSULE. PO SCH (08:33)
[2020-02-18] MEDS: CITALOPRAM 20 MG TABLET. PO SCH (08:34)
[2020-02-18] MEDS: oxyCODONE/APAP 5/325 1 TAB TABLET PO PRN ×2 (08:34→13:17)
[2020-02-18] MEDS ORDERED: NON FORMULARY ITEM (Letrozole (Femara) 2.5 MG) PO SCH (09:00)
[2020-02-18] MEDS: METOPROLOL SUCC 24HR ER 25 MG TAB.ER.24H. PO SCH (09:00)
[2020-02-18] MEDS ORDERED: MULTIVITAMIN with MINERAL TABLET. PO SCH (09:00)
--- NOTE | 2020-02-18 11:00 | NUR ---
Doing well this am. Using the walker to ambulated. Voiding without difficulty. Cont. monitor.
[2020-02-18 11:29] VITALS: BP 99/52
[2020-02-18] MEDS ORDERED: DOCU-153 PO (12:06)
[2020-02-18] MEDS ORDERED: METH750T2 PO (12:06)
[2020-02-18] MEDS ORDERED: OXYC1TAB15 PO (12:06)
--- NOTE | 2020-02-18 12:07 | DISCH ---
DISCHARGE INSTRUCTIONS Condition on Discharge Condition on Discharge: Stable Activity After Discharge Activity Instructions for Disc: Resume previous activity, Activity as tolerated Other activity instructions: no driving for a week Bathing Instructions: Shower-keep dressing dry Lifting Instructions after Dis: No heavy lifting, No pulling or pushing, Do not lift >10 pounds Exercise Instruction after Dis: Exercise per therapy Driving Instructions after Dis: Do not drive Weight Bearing Status after Di: Non weight bearing Diet after Discharge Diet after Discharge: Diabetic No Calorie Level Additional Diet Restrictions: Small portions but frequent meals Diet Texture: Regular Wound Incision Care Wound/Incision Care: Ice to area for comfort, Do not change dressing Other wound/incision instructi: may remove dressing in 48 hours if dry then may shower, no soaking Checks after Discharge Checks after discharge: Check blood sugar, ac/hs Contacting the DRPaula after DC Call your doctor for: Concerns you may have Follow-Up Follow up with: Dr. Whitt's nurse in 2 weeks [phone] Treatment/Equipment after DC Adaptive Equipment Issued: Four wheeled LUIGI Campuzano MD Feb 18, 2020 12:07
--- NOTE | 2020-02-18 12:17 | DS ---
DATE OF DISCHARGE: 02/18/2020 DISCHARGE DIAGNOSES: 1. Severe lumbar spinal stenosis at L3-L4 with sequestered disk fragment at L3-L4 and lumbar radiculopathy. 2. Previous instrumented fusion, L4 to sacrum. OPERATION PERFORMED: 1. Removal of hardware, L4 to sacrum. 2. Lumbar laminectomy, L3-L4. 3. Bilateral microdecompression of dura and nerve root with removal of herniated disk and ligamentum flavum, L3-L4. HISTORY OF PRESENT ILLNESS: The patient is a pleasant 59-year-old who developed intractable back and bilateral leg pain along with feelings of unsteadiness and weakness in her legs. On imaging studies, she had the above-mentioned findings and after failing conservative measures, I recommended lumbar surgery to decompress this region. The hardware from her previous fusion was in the way of decompressing L3-L4, so I elected to remove this. I confirmed that there was a solid fusion. She understood the surgery and the risk and wished to proceed. HOSPITAL COURSE: She has been admitted to the floor postoperatively where she has done well. She has been up ambulating in the room and in the halls. Physical therapy was initiated and instruction was given to her regarding her activities. She does note improvement in her lower extremity symptoms. Her pain is well controlled and she is in good condition to discharge home. DISCHARGE MEDICATIONS: She will resume her medications per the MRAD. DISCHARGE INSTRUCTIONS: She was instructed regarding incision care, activity restrictions and expectations for the next several weeks. She will follow up in our office in 2 weeks. She understands to call with any questions or concerns. LUIGI HOOK MD DR: MAYRA/kait JOB#: [id number] / [id number]
--- NOTE | 2020-02-18 13:25 | NUR ---
Discharge instructions given with prescriptions. Answered question and concerns. Verbalized understanding. Pt discharged home accompanied by spouse.
--- NOTE | 2020-02-21 18:06 | PATHOLOGY ---
[facility] Accession Number: [id number] . 01 Material submitted: . vertebral column - LUMBAR DISC AND DECOMPRESSION . 01 Clinical history: . Lumbar stenosis, herniated disc with radiculopathy, arthrodesis status . 02 Diagnosis: Segments of fibrocartilaginous tissue and bone, lumbar disc and decompression: - Degenerative changes of fibrocartilaginous tissue. LBQ 02/21/2020 1552 Local . 02 Comment: There is no evidence of an acute inflammatory process or malignancy. (JPM/db; 02/21/2020) . 02 Electronically signed: . Sonny Ortiz MD, Pathologist NPI- [id number] . 01 Gross description: . The specimen is received in formalin, labeled "Best, Nabila, lumbar disc and decompression" and consists of multiple segments of yellow-kaiser to brown, rubbery and gritty tissue and bone measuring 4.5 x 3.0 x 1.4 cm in aggregate. A sales representative business courses portion is submitted in A1 following decalcification. (SDY; 02/18/2020) SYU/SYU 02/21/2020 1550 Local . 02 Pathologist provided ICD-10: M99.73, M51.26, M54.16 . 02 CPT . 196276, [id number] Specimen Comment: A courtesy copy of this report has been sent to [phone], [phone] Specimen Comment: [id number] Specimen Comment: Report sent to / DR WEISS Performed at: 01 [facility] [address], [place], [place] [id number] MD Issa Schumacher MD Phone: [phone] Performed at: 02 [facility] [address] [place], [place] [id number] MD Sonny Ortiz MD Phone: [phone]
[2020-02-24] MEDS ORDERED: NON FORMULARY ITEM (Dulaglutide (Trulicity) 0.75 MG) SQ SCH (09:00)
== END 2020-02-18 13:25 | disposition home or self-care (01) | DRG 520 ==
LOC: OPSVCIP 05:57 → 4 SOUTHEST 15:26
PROVIDERS: ADMIT Neurological Surgery; ATTEND Neurological Surgery
PROC: 01NB0ZZ Release Lumbar Nerve, Open Approach (ICD-10-PCS; 2020-02-17)
PROC: 0SP304Z Removal of Internal Fixation Device from Lumbosacral Joint, Open Approach (ICD-10-PCS; 2020-02-17)
PROC: 4A11X4G Monitoring of Peripheral Nervous Electrical Activity, Intraoperative, External Approach (ICD-10-PCS; 2020-02-17)
PROC: 0SB20ZZ Excision of Lumbar Vertebral Disc, Open Approach (ICD-10-PCS; principal; 2020-02-17 08:30)
DX: M48.062 Spinal stenosis, lumbar region with neurogenic claudication (principal); M51.16 Intervertebral disc disorders with radiculopathy, lumbar region; M10.9 Gout, unspecified; F17.200 Nicotine dependence, unspecified, uncomplicated; Z86.73 Personal history of transient ischemic attack (TIA), and cerebral infarction without residual deficits; Z85.9 Personal history of malignant neoplasm, unspecified; Z83.3 Family history of diabetes mellitus; Z83.2 Family history of diseases of the blood and blood-forming organs and certain disorders involving the immune mechanism; Z80.9 Family history of malignant neoplasm, unspecified; Z82.0 Family history of epilepsy and other diseases of the nervous system; Z88.8 Allergy status to other drugs, medicaments and biological substances; Z87.74 Personal history of (corrected) congenital malformations of heart and circulatory system
CPT/HCPCS: 36415; 72131; 76000; 82962; 86850; 86900; 86901; 88304; 88311; A7015; C1713; J0696; J1100; J1815; J1885; J2250; J2270; J2370; J2405; J2704; J2710; J3010; J3480; J3490; J7030; J7120; 97530-GP; G0378

== ENCOUNTER → 2020-05-22 | Outpatient (CLI) | payer MEDICARE ==
[~2020-05-22] MED LIST changes: +DOCU-153 PO; +METH750T2 PO
--- NOTE | 2020-05-22 11:22 | KCIC ---
MRI of the thoracic spine without contrast 05/22/2020 CLINICAL HISTORY: Recent onset of right flank pain which radiates to the abdominal wall. TECHNIQUE: Unenhanced T1-weighted, T2-weighted and inversion recovery sagittal T1-weighted and T2-weighted axial images of the thoracic spine were obtained. Additionally T2-weighted sagittal images of the cervical, thoracic and lumbar spine were obtained for localization purposes. FINDINGS: Very mild S-shaped curvature of the thoracolumbar spine is seen. Degenerative signal changes are seen involving all of the disks of the thoracic spine. Degenerative signal changes are seen within the marrow surrounding these discs. A 1.2 cm hemangioma is seen involving the T7 vertebral body. No area of abnormal signal intensity is seen involving the thoracic spinal cord. A 6 mm rounded high signal intensity lesion is seen involving the right lobe of the liver on the T2-weighted images. This likely represents a hepatic cyst. Degenerative changes are seen involving the thoracic disc spaces consisting of minimal to mild generalized disc bulge as well as degenerative changes involving the facet joints. Superimposed focal central disc protrusions are seen involving the T6-7, T7-8 and T8-9 disc spaces. A auperimposed right paracentral focal disc protrusion is seen at T9-10. These measure 2 to 3 mm in AP diameter. These findings do not result in significant central spinal canal or neural foraminal stenosis. IMPRESSION: Degenerative changes are seen throughout the thoracic spine. These findings do not result in significant central spinal canal or neural foraminal stenosis at any level. Electronically signed by: Jonathon Lugo MD (05/22/2020 11:19 AM) [id number]
== END | disposition home or self-care (01) ==
LOC: KCIC MRI 09:21
PROVIDERS: ATTEND Neurological Surgery
DX: M47.24 Other spondylosis with radiculopathy, thoracic region (principal); M51.14 Intervertebral disc disorders with radiculopathy, thoracic region; M48.04 Spinal stenosis, thoracic region
CPT/HCPCS: 72146

== ENCOUNTER → 2020-06-28 | Outpatient (CLI) | payer MEDICARE ==
--- NOTE | 2020-06-28 14:24 | KCIC ---
Bilateral diagnostic digital mammograms with 3-D tomosynthesis: Reason for examination: History of left breast cancer with lumpectomy and radiation therapy. Follow-up exam. Comparison is made to previous studies dated 08/12/2019, 01/18/2019 and 08/11/2018. Bilateral mammograms in CC and oblique projections were obtained with 2-D imaging and 3-D tomosynthesis imaging on a Siemens Inspiration unit and reviewed on the workstation. Interpretation was made with the benefit of CAD. The skin and nipples show no abnormalities. No abnormal axillary lymph nodes are seen. The breast parenchyma is heterogeneously dense. (Breast density: Category C.) There are postop and postradiation changes in the left breast. Lateral and slightly superior to the lumpectomy scar however there appears to be new 6 mm nodule. Further evaluation with ultrasound will follow. There are no other new dominant masses, suspicious calcifications or architectural distortion. Benign calcifications are present. Impression: Postop and postradiation changes in the left breast posterior laterally. New 6 mm nodule located lateral and slightly superior to the lumpectomy scar. Ultrasound to follow. Your patient's mammogram demonstrates that she has dense breast tissue (breast density category C or D), which could hide abnormalities, and if she has other risk factors for breast cancer that have been identified, she might benefit from supplemental screening tests that may be suggested by you as her ordering physician. Dense breast tissue, in and of itself, is a relatively common condition. Therefore, this information is not provided to cause undue concern, but rather to raise your awareness and to promote discussion with your patient regarding the presence of other risk factors, in addition to dense breast tissue. Your patient's mammography results will be sent to her. BI-RAD Category 0: Incomplete. Needs additional imaging evaluation. Left breast ultrasound: Ultrasound examination of the left breast was performed in the area of mammographic concern and at the axilla. At the 2:00 position 6 cm from the nipple and corresponding to the area of mammographic concern, there is a 5.7 x 4.5 mm hypoechoic nodule. At the 3:00 position 7 cm from the nipple, there is parenchymal scarring from lumpectomy with small residual seroma seen. No abnormal appearing lymph nodes are seen in the left axilla. IMPRESSION: 5.7 x 4.5 mm nodule at the 2:00 position 6 cm from the nipple which corresponds to the mammographic abnormality. Recommend ultrasound-guided biopsy. BI-RADS Category 4: Suspicious. These findings have been discussed with the patient and the clinical coordinator in the office of Dr. Cristina Estrada was notified via the [employer] messaging system about these findings on 06/28/2020 at 1415 p.m. "Our facility is accredited by the [employer] Mammography Program." This patient's information has been entered into a reminder system for the patient to be notified with the results of her examination and a target date for the next mammogram. Electronically signed by: Waleska Adhikari MD (06/28/2020 2:21 PM) [id number]
== END ==
LOC: KCIC MAMMO 10:27
PROVIDERS: ATTEND Internal Medicine Hematology & Oncology
DX: R92.1 Mammographic calcification found on diagnostic imaging of breast (principal); N63.21 Unspecified lump in the left breast, upper outer quadrant; Z90.12 Acquired absence of left breast and nipple
CPT/HCPCS: 76641; 77066; G0279; 77062

== ENCOUNTER → 2020-07-06 | Outpatient (CLI) | payer MEDICARE ==
--- NOTE | 2020-07-06 16:16 | RAD ---
Examination: 1. Ultrasound-guided left breast core needle biopsy. 2. Digital left postprocedure mammogram. COMPARISON: Left breast ultrasound and diagnostic mammogram of 06/28/2020. INDICATION: 59-year-old woman with history of left breast cancer recommended for biopsy of a nodule developing near her lumpectomy scar seen on recent diagnostic mammogram and ultrasound. TECHNIQUE: Informed consent was obtained and an appropriate procedural pause observed. Standard sterile technique, ultrasound guidance and local anesthesia was utilized in directing a 14-gauge core biopsy needle from a lateral approach into the nodule in the left breast and multiple core biopsy samples were obtained. Biopsy marker was deployed in the lesion under ultrasound guidance and hemostasis ensured with direct breast compression for 10 minutes. Digital left postprocedure mammogram showed satisfactory deployment of the biopsy marker in the vicinity of the mammographic finding with no postbiopsy hematoma. Post procedure instructions reviewed and patient discharged in stable condition to follow up with her referring physician. No apparent complications. IMPRESSION: Successful ultrasound-guided left breast core needle biopsy of a 6 mm left breast mass at the 2:00 position 6 cm from nipple with satisfactory clip deployment. Pathology results are pending. An addendum will be issued once pathology results become available. Electronically signed by: Jessica Mendenhall MD (07/06/2020 4:13 PM) [id number]
--- NOTE | 2020-07-12 22:09 | PATHOLOGY ---
[facility] Accession Number: [id number] . 01 Material submitted: . breast - LEFT BREAST BIOPSY. Modifiers: left . 01 Clinical history: . LEFT BREAST MASS . 02 Diagnosis: "LT breast BX", needle biopsy: - BREAST TISSUE WITH RARE/SCANT ATYPICAL DUCTS AND STROMAL CALCIFICATIONS. (SEE COMMENT) LBQ 07/12/2020 2148 Local . 02 Comment: Sections show needle core biopsy fragments of breast tissue. Benign breast ducts are identified. Rare stromal microcalcifications are noted. A minute focus of atypical ducts are identified in one core. Properly controlled immunohistochemical stains are performed. . Blocks A1 and A2: CK5/6 - Atypical ducts reactive; Smooth muscle myosin - Intact myoepithelial cells, atypical ducts not well represented; P63 - Intact myoepithelial cells, atypical ducts not well represented. . Overall, the clinical significance of the rare/scant atypical ducts is unclear. The histologic differential diagnosis includes reactive changes, flat epithelial atypia and partially sampled ductal carcinoma in situ. Clinical and radiographic correlation is required. Of note, this could represent a small portion of a larger lesion and may not be entirely exhibit display representative. Again, clinical and radiographic correlation is required. The case is co-reviewed with Dr. Gayla Mead. The H and E stained slides are also reviewed with Dr. Bianca Sweeney. (CLW/db; 07/12/2020) . 02 Electronically signed: . Vanessa Capps MD, Pathologist NPI- [id number] . 01 Gross description: . Received in formalin labeled "Best, Nabila, left breast biopsy" are multiple cylindrical kaiser-yellow soft tissue cores measuring in aggregate 0.9 x 0.6 x 0.2 cm. The specimen is submitted entirely in cassettes A1-A3. The specimen is removed from the patient and placed in formalin at unspecified times on 07/06/2020. The specimen is removed from formalin at 1850 on 07/07/2020. ([facility] [facility] 07/07/2020 1122 Local . 02 Pathologist provided ICD-10: N64.89 . 02 CPT . 152534, N80168, F09502 Specimen Comment: A courtesy copy of this report has been sent to [phone] Specimen Comment: [id number], Specimen Comment: Report sent to , / Performed at: 01 [facility] [address] [facility] [address], [place] [id number] MD Nahid Santos MD Phone: [phone] Performed at: 02 [facility] [address] [place], [place] [id number] MD Sonny Ortiz MD Phone: [phone]
== END | disposition home or self-care (01) ==
LOC: US 08:31
PROVIDERS: ATTEND Internal Medicine Hematology & Oncology
DX: N63.21 Unspecified lump in the left breast, upper outer quadrant (principal); I10 Essential (primary) hypertension; E78.00 Pure hypercholesterolemia, unspecified; E11.9 Type 2 diabetes mellitus without complications; F41.9 Anxiety disorder, unspecified; F32.9 Major depressive disorder, single episode, unspecified; F17.210 Nicotine dependence, cigarettes, uncomplicated; Z85.3 Personal history of malignant neoplasm of breast; Z87.440 Personal history of urinary (tract) infections; Z90.49 Acquired absence of other specified parts of digestive tract; Z98.890 Other specified postprocedural states; Z79.4 Long term (current) use of insulin; Z79.899 Other long term (current) drug therapy; Z88.8 Allergy status to other drugs, medicaments and biological substances; Z82.49 Family history of ischemic heart disease and other diseases of the circulatory system
CPT/HCPCS: 19083; 77065; 88305; 88341; 88342; C1713; 19081; 76942

== ENCOUNTER → 2020-07-14 | Outpatient (CLI) | payer MEDICARE ==
--- NOTE | 2020-07-14 12:10 | KCIC ---
EXAM: Lumbar spine, flexion and extension. HISTORY: Radiculopathy. COMPARISON: CT obtained on the same date. FINDINGS: Lateral flexion and extension views of the lumbar spine are obtained. There are disc space fusion devices at L4-L5 and L5-S1. There is grade 1 anterolisthesis of L4 on L5 which measures 7 mm with extension and 8 mm with flexion. There is grade 1 anterolisthesis of L5 on S1 which measures 7 mm with extension and 7 mm with flexion. There is grade 1 anterolisthesis of L3 on L4 during flexion measuring 3 mm. This reduces to 2 mm with extension. There are suspected pars defects at this level. The vertebral bodies are normal in height. There is disc space narrowing at L4-L5 and L5-S1. There is facet arthropathy at the lower lumbar levels. There are laminotomy changes and there is noninstrumented fusion at L4-L5 and L5-S1. IMPRESSION: 1. Multilevel degenerative change primarily at the lower lumbar levels, described in detail above. 2. Grade 1 anterolisthesis of L4 on L5 and L5 on S1, the former which slightly changes between flexion and extension. There is also grade 1 anterolisthesis of L3 on L4 which minimally decreases with extension. 3. Laminectomy changes and noninstrumented fusion at L4-L5. There are disc space fusion devices at L4-5 and L5-S1. Electronically signed by: Ngoc Barr MD (07/14/2020 12:07 PM) [id number]
--- NOTE | 2020-07-14 15:18 | KCIC ---
CT LUMBAR SPINE WO CONTRAST History:Reason: LBP, bilateral radiculopathy, bilateral muscles spasms legs, surgery 02/2020 / Spl. Instructions: / History: Technique: Noncontrast CT was performed of the lumbar spine. Multiplanar reconstructions were performed. Exposure: One or more of the following individualized dose reduction techniques were utilized for this examination: 1. Automated exposure control 2. Adjustment of the mA and/or kV according to patient size 3. Use of iterative reconstruction technique. Comparison: February 17, 2020 Findings: Grade 1 anterolisthesis L4 on L5 and L5-S1, unchanged. Postoperative changes anterior vertebral device anteriorly positioned and L4-L5. No definite bony bridging L4-L5. Intervertebral device L5-S1 with potential minimal bony bridging on the left. Removal of previously seen posterior stabilization hardware. L4-5 and L5-S1 facets are fused. Posterior decompression L4-5 and L5-S1. No acute fracture. Left nonobstructing intrarenal calculi. No hydronephrosis. Atheromatous plaque throughout the nonaneurysmal abdominal aorta. Increased density material within the duodenum. Prior cholecystectomy. L1-L2: No canal or neuroforaminal narrowing. L2-L3: Minimal disc bulge. No canal or neuroforaminal narrowing. L3-L4: Small disc bulge. Left laminectomy and facetectomy is. No canal narrowing. Mild left neuroforaminal narrowing, unchanged. No right neuroforaminal narrowing. L4-L5: Anterolisthesis. Posterior decompression. Facet fusion. No canal narrowing. No neuroforaminal narrowing. L5-S1: Anterolisthesis. Disc uncovering. Disc bulge. Facet fusion. Subarticular recess narrowing. No canal narrowing. Mild bilateral neuroforaminal narrowing, left greater than right, unchanged. Impression: 1. Interval postoperative changes L3-L4 with improved canal patency. Interval removal of posterior stabilization hardware L4-S1. 2. Unchanged anterolisthesis L4 on L5 and L5 on S1. 3. Multilevel lumbar spondylosis most prominent L3-L4 and L5-S1. Electronically signed by: Huber Loza DO (07/14/2020 3:15 PM) [id number]
== END ==
LOC: KCIC CT 10:50
PROVIDERS: ATTEND Neurological Surgery
DX: M47.26 Other spondylosis with radiculopathy, lumbar region (principal); M43.16 Spondylolisthesis, lumbar region; M43.27 Fusion of spine, lumbosacral region; M48.07 Spinal stenosis, lumbosacral region; Z98.890 Other specified postprocedural states
CPT/HCPCS: 72100; 72131

== ENCOUNTER → 2020-07-20 | Outpatient (CLI) | payer MEDICARE ==
[~2020-07-20] MED LIST changes: +GADOTERATE 7.5 MMOL/15ML VIAL. IVP ONE
--- NOTE | 2020-07-20 11:33 | KCIC ---
LUMBAR SPINE WO/W CONTRAST History: Reason: LUMBAR RADICULOPATHY / Spl. Instructions: / History: LBP and BLE pain, surgery in February to remove hardware. 12cc Clariscan Technique: Multiplanar, multi sequential MR imaging was performed of the lumbar spine. Comparison: MRI November 19, 2019. CT July 14, 2020 Findings: Postoperative changes L4-S1. Prior hardware removal. Posterior decompression L3-L4, L4-L5 and L5-S1. Grade 1 anterolisthesis L4 on L5 and L5 on S1, unchanged. Intervertebral device L4-L5 and L5-S1. Facet fusion L4-5 and L5-S1. Mild degenerative endplate edema L3-L4. Conus terminates at the normal location. No evidence of nerve root clumping. L1-L2: No canal or neuroforaminal narrowing. L2-L3: Minimal disc bulge. No canal or neuroforaminal narrowing. L3-L4: Bilateral laminectomies. Disc bulge. Moderate canal narrowing. Subarticular recess narrowing. Severe left and moderate right neuroforaminal narrowing. Overall improved canal patency compared to prior. There is enhancement within the posterior epidural region and appendectomy defects. Enhancement extends along the posterior aspect of the neural foramen with potential abutment of the exiting left L3 nerve root. L4-L5: Grade 1 anterolisthesis. Intervertebral fusion. Posterior decompression. No canal narrowing. Mild right neuroforaminal narrowing. L5-S1: Anterolisthesis. Intervertebral fusion. Posterior decompression. No canal narrowing. Moderate left and mild right neuroforaminal narrowing, unchanged. Impression: 1. Interval postoperative changes L3-L4 with removal of hardware L4-S1. 2. L3-L4 spondylosis with moderate canal narrowing, decreased compared to prior. 3. Enhancement within the L3-L4 posterior epidural space along the posterior neuroforamen, may relate to granulation tissue. 4. Unchanged grade 1 anterolisthesis L4 on L5 and L5 on S1. 5. Neuroforaminal narrowing most prominent left L3-L4 and left L5-S1, unchanged. Electronically signed by: Huber Loza DO (07/20/2020 11:30 AM) [id number]
== END ==
LOC: KCIC MRI 08:30
PROVIDERS: ATTEND Neurological Surgery
DX: M47.26 Other spondylosis with radiculopathy, lumbar region (principal); M43.17 Spondylolisthesis, lumbosacral region; Z98.1 Arthrodesis status
CPT/HCPCS: 72158; 82565; A9575

== ENCOUNTER → 2020-07-28 | Outpatient (CLI) | payer MEDICARE ==
[~2020-07-28] MED LIST changes: -GADOTERATE 7.5 MMOL/15ML VIAL. IVP ONE; +HYDR-3164 PO
== END ==
LOC: LAB 14:34
PROVIDERS: ATTEND Surgery
DX: Z01.812 Encounter for preprocedural laboratory examination (principal); R92.8 Other abnormal and inconclusive findings on diagnostic imaging of breast; Z20.828 Contact with and (suspected) exposure to other viral communicable diseases
CPT/HCPCS: U0003

== ENCOUNTER 2020-08-02 07:50 | Day surgery (SDC) | payer MEDICARE ==
[~2020-08-02] VITALS: Ht 162.6 cm; Wt 66.0 kg
[~2020-08-02 07:50] MED LIST changes: +BUPIVACAINE-EPI 0.5%-1:200000 MPF 30 ML VIAL. INJ ONE; -HYDR-3164 PO; +HYDROmorphone 2 MG/ML VIAL IV PRN; +IV RINGERS,LACTATED 1000ML 1,000 ML IV SCH; +MORPHINE SULFATE 2 MG/ML VIAL. IV PRN; +ONDANSETRON PF 4 MG/2 ML VIAL. IV PRN; +PROCHLORPERAZINE 10 MG/2 ML VIAL. IV PRN; +fentaNYL PF VIAL 100 MCG/2 ML VIAL IV PRN
[2020-08-02] MEDS ORDERED: PROPOFOL 10 MG/ML (20ML) VIAL. IV ONE (08:24)
[2020-08-02] MEDS ORDERED: LIDOCAINE 2% PF 5 ML VIAL. ONE (08:24)
[2020-08-02] MEDS ORDERED: DEXAMETHASONE SOD PHOS 4 MG/ML VIAL ONE (08:24)
[2020-08-02] MEDS ORDERED: ONDANSETRON PF 4 MG/2 ML VIAL. ONE (08:24)
[2020-08-02] MEDS ORDERED: fentaNYL PF VIAL 100 MCG/2 ML VIAL ONE ×2 (08:25→13:20)
[2020-08-02] MEDS ORDERED: LIDOCAINE 1%/EPI 1:100,000 20 ML VIAL. ONE (10:20)
[2020-08-02] MEDS ORDERED: MIDAZOLAM HCL/PF 2 MG/2 ML VIAL. ONE (10:50)
[2020-08-02] MEDS ORDERED: SEVOFLURANE 31 TO 60 MINUTES. IH ONE (11:04)
[2020-08-02] MEDS ORDERED: PHENYLEPHRINE in 0.9% NACL PF 1 MG/10 ML SYRINGE. IV ONE (11:34)
--- NOTE | 2020-08-02 12:25 | RAD ---
Examination: 1. Ultrasound-guided left breast needle localization. 2. Left digital postprocedure mammogram. INDICATION: 59-year-old woman with history of left lumpectomy for breast cancer recommended for biopsy of a nodule in the upper outer left breast that showed atypia on core needle biopsy of 07/06/2020, subsequently referred for surgical excision. Needle localization preoperatively is requested. COMPARISON: Postbiopsy mammogram of 07/06/2020 and the ultrasound-guided core needle biopsy images of that same day. TECHNIQUE: Informed consent was obtained and an appropriate procedural pause observed. Using standard sterile technique, ultrasound guidance and local anesthesia, a 7 cm Kopans needle was advanced from a lateral approach into the left breast. The needle threaded an area of ill-defined hypoechoic shadowing mass corresponding with the 6 mm nodule targeted for biopsy previously. Following sonographic confirmation of satisfactory needle placement, a hookwire was threaded through the needle and left in place while the needle itself was removed. Digital left procedure mammogram showed satisfactory placement of the wire adjacent to the biopsy marker and along the dorsal margin of the biopsied mass. No apparent post procedure complications. The puncture site was dressed and postprocedure instructions reviewed prior to patient transfer to preanesthesia care unit for further care and management. IMPRESSION: Ultrasound-guided left breast needle localization with satisfactory wire placement confirmed on digital post procedure mammogram. No apparent complications. Electronically signed by: Jessica Mendenhall MD (08/02/2020 12:22 PM) [id number]
[2020-08-02] MEDS ORDERED: SEVOFLURANE 61 TO 120 MINUTES. IH ONE (12:33)
--- NOTE | 2020-08-02 12:57 | PDOC4 ---
Operative Note Operative Note Operative Note: Preoperative Diagnosis: Abnormal mammogram left breast Postoperative Diagnosis: Same Procedure: Left breast biopsy with needle localization Surgeon: Jose Maria Printing Plate Setter: Guillermo DOMINGUEZ Anesthesia: General EBL: 20 mL Specimen: Left breast biopsy to pathology Drains: None Indication: The patient is a 59-year-old female who has a prior history of left breast cancer. A recent mammogram showed a small nodule at the 2 o'clock position of left breast. A core needle biopsy noted rare atypical ducts and stromal calcifications. She was referred for consideration of a wider excisional biopsy. The details and risks of surgery were discussed with the patient. The risks include bleeding, infection, scar tissue, wound healing problems, pain, potential need for additional surgery procedure. In addition we discussed the possibility of not identifying the lesion intraoperatively. She understands and would like to proceed. Description: The patient initially underwent wire localization in radiology. She was then brought to the operating room and placed supine on the operating table. General anesthesia was performed. The left breast was prepped with ChloraPrep and draped in a standard surgical manner. The wire was exiting in the lateral aspect of the left breast. An incision was made adjacent to the exit site of the wire with a scalpel. Cautery dissection was carried down to the breast parenchyma. The wire was identified and delivered into the wound. With cautery dissection we mobilized the tissue around the wire well beyond the distal tip. The specimen including the wire was fully excised from the surrounding breast parenchyma and sent for specimen radiograph. The specimen radiograph confirmed the wire to be present however the clip was not visualized. In discussion with the radiologist he suspected that it could possibly be located near the lateral margin. We therefore elected to remove a small amount of additional lateral tissue. Specimen radiographs of this again did not show the clip. Attempts were made to identify the clip in the left breast using the C arm device in the operating room. The clip could not be reliably identified. Hemostasis was achieved with cautery and we elected to conclude the case. Subcutaneous tissue was closed with 3-0 Vicryl and skin approximated with 4-0 Monocryl. A Steri-Strip and dressing were applied. The patient tolerated the procedure well and was sent to recovery room in stable condition. At the end the case all counts were correct. SAMIR ZAVALETA MD Aug 02, 2020 12:57
--- NOTE | 2020-08-02 13:00 | DISCH ---
DISCHARGE INSTRUCTIONS Condition on Discharge Condition on Discharge: Stable Activity After Discharge Activity Instructions for Disc: Resume previous activity Diet after Discharge Diet after Discharge: Regular Additional Diet Restrictions: Small portions but frequent meals Wound Incision Care Wound/Incision Care: Other, see below (keep dressing clean and dry X 72 hours, may then remove and shower) Follow-Up Follow up with: Dr Zavaleta in 1 week in office, call for appointment [phone] SAMIR ZAVALETA MD Aug 02, 2020 13:00
[2020-08-02] MEDS ORDERED: HYDROcodone/APAP 5/325MG 1 TAB TABLET PO ONE ×2 (13:15)
[2020-08-02] MEDS ORDERED: HYDR-3164 PO (13:26)
[2020-08-02] MEDS ORDERED: oxyCODONE/APAP 5/325 1 TAB TABLET PO ONE (13:30)
[2020-08-02] MEDS: fentaNYL PF VIAL 100 MCG/2 ML VIAL IV PRN ×2 (13:32→13:44)
[2020-08-02 13:50] VITALS: BP 107/56
--- NOTE | 2020-08-03 07:46 | RAD ---
Left breast surgical specimen INDICATION: Lumpectomy for atypia identified on core needle biopsy of 06/28/2020 COMPARISON: Status post procedure mammogram 07/06/2020. FINDINGS: Surgical specimen contains the hook wire but no biopsy clip. IMPRESSION: Specimen contains the wire but no clip. Report telephoned to Dr. Moise in the operating room at approximately 11:40 AM on 08/02/2020. Electronically signed by: Jessica Mendenhall MD (08/03/2020 7:43 AM) [id number]
--- NOTE | 2020-08-03 07:56 | RAD ---
Left breast surgical specimen INDICATION: Left lumpectomy for atypia on recent left breast core needle biopsy. History of previous breast cancer in the same breast. COMPARISON: Left postprocedure mammogram following needle localization earlier the same day. FINDINGS: Multiple small fragments of tissue are present in the specimen cup. No surgical clip is however identified. IMPRESSION: No surgical clip present in the surgical specimen. Report telephoned to the operating room and discussed with Dr. Moise at approximately 11:50 AM on August 02, 2020. Electronically signed by: Jessica Mendenhall MD (08/03/2020 7:53 AM) [id number]
--- NOTE | 2020-08-03 08:01 | RAD ---
Left breast surgical specimen. INDICATION: Left lumpectomy for atypia following recent needle biopsy. Personal history of lumpectomy for breast cancer in the Left breast. COMPARISON: Surgical specimens obtained earlier the same day and left post needle localization mammogram from earlier the same day. FINDINGS: A single surgical specimen is present containing a soft tissue density centered at the E7 coordinate. No surgical clip however is apparent. IMPRESSION: No surgical clips present in the surgical specimen. Report telephoned to the operating room and discussed with Dr. Moise at approximately 12:30 PM on 08/02/2020. Electronically signed by: Jessica Mendenhall MD (08/03/2020 7:57 AM) [id number]
--- NOTE | 2020-08-07 15:07 | PATHOLOGY ---
[facility] Accession Number: [id number] . 01 Material submitted: . PART A: breast - 1-LEFT BREAST BIOPSY. Modifiers: left PART B: breast - 2-LEFT BREAST SPECIMEN. Modifiers: left PART C: breast - 3-LEFT BREAST BIOPSY, LATERAL TISSUE. Modifiers: left, lateral . 01 Clinical history: . ABNORMAL MAMMOGRAM . 02 Diagnosis: A. Breast tissue, wire localized left breast biopsy: - Stromal fibrosis showing focal chronic inflammation with admixed eosinophils and small microcalcification. - Small ancient fibroadenoma. . B. Fibroadipose tissue, left breast specimen: - Fat necrosis. . C. Fibroadipose tissue, left breast lateral tissue biopsy: - Focal recent hemorrhage. (JPM:flag decorator:db; 08/04/2020) . MB 08/07/2020 1158 Local . 02 Comment: There is no atypia or evidence of malignancy. (JPM/db; 08/07/2020) . 02 Electronically signed: . Sonny Ortiz MD, Pathologist NPI- [id number] . 01 Gross description: . A. Received in formalin labeled "Roberto Carlos Nabila, left breast biopsy" is an unoriented portion of yellow-kaiser lobulated fibroadipose tissue weighing 8 g and measuring 4.4 x 4.3 x 0.7 cm. A guidewire extends from one aspect of the specimen. The external surface is inked entirely black. The specimen is serially sectioned into 12 slices. The cut surface is yellow and lobulated with focal fibrous areas. Without a definitive lesion. The guidewire site is in slices 10-12, and has surrounding fibrous tissue without a biopsy clip identified. The specimen is submitted entirely as follows: A1 slice 1, perpendicular sections A2-A11 slices 2-11 A12 slice 12, perpendicular sections The specimen is removed from the patient at 1136 and placed in formalin at 1210 on 08/02/2020. The specimen is removed from formalin at 1850 on 08/03/2020. . B. Received in formalin labeled "Nabila Azevedo, left breast specimen" are multiple kaiser-white fragments of calcified material or possible soft tissue measuring in aggregate 1.2 x 1.2 x 0.1 cm. The specimen is filtered and submitted entirely in cassette B1. The specimen is removed from the patient and placed in formalin at unspecified times on 08/02/2020. The specimen is removed from formalin at 1850 on 08/03/2020. . C. Received in formalin labeled "Nabila Azevedo, left breast biopsy lateral tissue" is an unoriented portion of yellow-kaiser lobulated fibroadipose tissue weighing 4 g and measuring 4.3 x 3.5 x 0.7 cm. No guidewires are present. The external surface is inked entirely black. The specimen is serially sectioned into 11 slices to reveal a yellow-kaiser lobulated cut surface. No masses or biopsy sites are grossly identified. The specimen is submitted entirely as follows: C1 slice 1, perpendicular sections C2-C5 slices 2-10 C6 slice 11, perpendicular sections The specimen is removed from the patient at 1220 and placed in formalin at 1234 on 08/02/2020. The specimen is removed from formalin at 1850 on 08/03/2020. ([facility] [place]; 08/03/2020) [facility] 08/03[facility]2020 0944 Local . 02 Pathologist provided ICD-10: N60.32, N61.0, N64.1 . 02 CPT . 654013, 454318, 483844 Specimen Comment: A courtesy copy of this report has been sent to [phone] Specimen Comment: [phone] Specimen Comment: Report sent to / DR WEISS Performed at: 01 [facility] [address] [facility] [address], [place] [id number] MD Nahid Santos MD Phone: [phone] Performed at: 02 [facility] [address] [place], [place] [id number] MD Sonny Ortiz MD Phone: [phone]
== END 2020-08-02 14:23 | disposition home or self-care (01) ==
LOC: SURG 07:50
PROVIDERS: ATTEND Surgery
DX: R92.8 Other abnormal and inconclusive findings on diagnostic imaging of breast (principal); N60.32 Fibrosclerosis of left breast; N64.1 Fat necrosis of breast; I25.10 Atherosclerotic heart disease of native coronary artery without angina pectoris; I10 Essential (primary) hypertension; E78.00 Pure hypercholesterolemia, unspecified; E11.9 Type 2 diabetes mellitus without complications; M81.0 Age-related osteoporosis without current pathological fracture; F41.9 Anxiety disorder, unspecified; F32.9 Major depressive disorder, single episode, unspecified; F17.210 Nicotine dependence, cigarettes, uncomplicated; Z85.3 Personal history of malignant neoplasm of breast; Z87.440 Personal history of urinary (tract) infections; Z90.49 Acquired absence of other specified parts of digestive tract; Z90.710 Acquired absence of both cervix and uterus; Z98.890 Other specified postprocedural states; Z79.4 Long term (current) use of insulin; Z79.899 Other long term (current) drug therapy; Z82.49 Family history of ischemic heart disease and other diseases of the circulatory system; Z88.8 Allergy status to other drugs, medicaments and biological substances
CPT/HCPCS: 19083; 19125; 77065; 82962; 88305; J0690; J1100; J2250; J2370; J2405; J2704; J3010; 76000; 76098; 76942; J3490

== ENCOUNTER → 2020-08-24 | Outpatient (CLI) | payer MEDICARE ==
[2020-08-02 13:50] VITALS: BP 107/56
[~2020-08-24] MED LIST changes: -BUPIVACAINE-EPI 0.5%-1:200000 MPF 30 ML VIAL. INJ ONE; +HYDR-3164 PO; -HYDROmorphone 2 MG/ML VIAL IV PRN; -IV RINGERS,LACTATED 1000ML 1,000 ML IV SCH; -MORPHINE SULFATE 2 MG/ML VIAL. IV PRN; -ONDANSETRON PF 4 MG/2 ML VIAL. IV PRN; -PROCHLORPERAZINE 10 MG/2 ML VIAL. IV PRN; -fentaNYL PF VIAL 100 MCG/2 ML VIAL IV PRN
--- NOTE | 2020-08-24 10:56 | HP ---
ADMIT DATE: 08/28/2020. DATE OF SURGERY: 08/28/2020. HISTORY OF PRESENT ILLNESS: The patient is a pleasant 59-year-old who has low back and mid thoracic pain. Her primary problem, however, is pain that radiates to her anterior thighs with standing, walking and activity. She says that the pain in her anterior thigh can get to a 9 /10 when she is active. She says that she takes oxycodone rarely. She does physical therapy exercises and tries to rest, but neither of those offer her any benefit. In 2015, she underwent an instrumented fusion from L4 to the sacrum. In 02/2020 she had removal of hardware L4 through S1, microdecompression at L3-L4. She appeared to have a solid fusion at L4-L5. No hardware was replaced. On subsequent images, there was motion seen at L4-L5 as well as L3-L4. PAST MEDICAL HISTORY: Gout, cancer, headaches, stroke, wound infection. PAST SURGICAL HISTORY: She had a breast lumpectomy; right ankle fracture and repair; perforated colon and lumbar fusion at L4 through S1 with Dr. Park in 2015; a PFO closure; removal of hardware L4 to sacrum; lumbar laminectomy with microdiskectomy L3 through 4 on 02/2020. FAMILY HISTORY: Bleeding problems, cancer, diabetes and seizures. SOCIAL HISTORY: She is retired. . Smokes a half a pack per day and has for 4 years. Stopped drinking alcohol 5 years ago. ALLERGIES: CORTISONE AND REGLAN. CURRENT MEDICATIONS: Ambien, calcium, Prolia, citalopram, gabapentin, letrozole, Levemir, multivitamin, Percocet, pravastatin sodium, topiramate. REVIEW OF SYSTEMS: A 12-point review of systems was obtained and is noncontributory except for that mentioned above. PHYSICAL EXAMINATION: NEUROSURGERY EXAMINATION: GENERAL APPEARANCE: Alert, pleasant, no acute distress. HEAD: Normocephalic and atraumatic. SKIN: Warm and dry. Well-healed lumbar incision. MUSCULOSKELETAL: Lumbar paraspinal muscle bulk is normal, restricted range of motion of the lumbar spine, [id number] tenderness of the lower lumbar spine with palpation, normal range of motion of the lower extremities bilaterally. EXTREMITIES: No clubbing, cyanosis or edema. NEUROLOGIC: Alert and oriented x 3; recent and remote memory is normal; strength 5/5 in bilateral lower extremities; sensory was intact to light touch in the lower extremities bilaterally. Reflexes are present and symmetric in bilateral lower extremities, negative straight leg raising bilaterally, normal gait. IMAGING: I reviewed a lumbar imaging studies at L3-L4. The amount of stenosis of the central canal has decreased since surgery. She continues to have severe on the left and moderately severe right neural foraminal narrowing. There is now a 2 mm of motion on flexion and extension images at L3-L4. At L4-L5, which appears to be fused, she also shows motion on flexion and extension images. ASSESSMENT/ PLAN: I am concerned that the motion at L3-L4 and L4-L5 combined with neural foraminal narrowing is the source of her severe inguinal region pain. At this point, I see few other options other than to replace the hardware at L4-L5 and extend it up to L3-L4. I do feel at L5-S1, there is a solid fusion. I feel it would probably be of further benefit to do microdecompression on the foramen at L3-L4 on the left in that it was very stenotic. I discussed all these with her including the technique, risks, and expected postoperative course. She would like to go ahead with surgery. We will make the arrangements. LUIGI HOOK MD DR: PAULA/kait JOB#: [id number] / [id number] HEMANTH
[2020-08-24 14:23] LABS: BASO % 0 % (0-3); EOS # 0.2 x10^3/uL (0.0-0.7); EOS % 3 % (0-3); HEMOGLOBIN 12.7 g/dL (12.0-15.5); LYMPH # 2.6 x10^3/uL (1.0-4.8); LYMPH % 35 % (24-48); MEAN CORPUSCULAR HEMOGLOBIN 31 pg (25-35); MEAN CORPUSCULAR HGB CONC 34 g/dL (31-37); MEAN CORPUSCULAR VOLUME 90 fL (79-100); MONO # 0.4 x10^3/uL (0.0-1.1); MONO % 6 % (0-9); NEUT # 4.1 x10^3/uL (1.8-7.7); NEUT % 56 % (31-73); PLATELET COUNT 243 x10^3/uL (140-400); RED BLOOD COUNT 4.09 x10^6/uL (3.50-5.40); RED CELL DISTRIBUTION WIDTH 13.4 % (11.5-14.5); WHITE BLOOD COUNT 7.3 x10^3/uL (4.0-11.0)
[2020-08-24 14:59] LABS: ALBUMIN 3.7 g/dL (3.4-5.0); CALCIUM 10.3 mg/dL (8.5-10.1); CREATININE 1.3 mg/dL (0.6-1.0); GFR 41.8; POTASSIUM 3.7 mmol/L (3.5-5.1); TOTAL BILIRUBIN 0.4 mg/dL (0.2-1.0); TOTAL PROTEIN 7.5 g/dL (6.4-8.2)
[2020-08-25 00:16] LABS: HEMOGLOBIN A1C 5.4 % (4.8-5.6)
== END ==
LOC: SURGPAT 13:09
PROVIDERS: ATTEND Neurological Surgery
DX: Z01.812 Encounter for preprocedural laboratory examination (principal); Z20.828 Contact with and (suspected) exposure to other viral communicable diseases; M43.16 Spondylolisthesis, lumbar region; M54.16 Radiculopathy, lumbar region
CPT/HCPCS: 36415; 80053; 82306; 83036; 85025; 85610; 85730; 87641; U0003

== ENCOUNTER → 2020-11-02 | Outpatient (CLI) | payer MEDICARE ==
[2020-08-30 11:00] VITALS: BP 90/48
[~2020-11-02] MED LIST changes: +LISI10TA16 PO; -LISI10TA2 PO; +METH-562 PO; -METH750T2 PO
--- NOTE | 2020-11-02 18:04 | RAD ---
Examination: 1. Limited left breast ultrasound. 2. Left digital diagnostic mammogram. INDICATION: 60-year-old woman with a history of left malignant lumpectomy tablet 2018 and recent exci sional biopsy near the lumpectomy bed for developing nodule that showed atypical cells on cortical bi opsy presents with a 6 week history of a tender lump in the area of her excisional biopsy. It is note d that the biopsy marker from the recent excisional biopsy was never identified on the tissue specime ns examined radiographically. COMPARISON: Left mammograms of 06/28/2020, 08/02/2020 and left breast ultrasound-guided core needle b iopsy images of 07/06/2020. FINDINGS: Initial imaging of the patient's reported palpable tenderness was performed with ultrasound and revea led a 4.5 x 2.2 x 3.0 cm mixed solid and cystic mass showing no significant internal blood flow. Bearing in mind that the biopsy marker was never identified on the surgical specimens from the patien t's most recent excisional biopsy on August 02, 2020, the opportunity was taken at this visit to pe rform a diagnostic left mammogram in search of the biopsy marker and to further characterize the sono graphic mass. The additional views of the left breast show heterogeneously dense breast tissue with a new circumscr ibed partially imaged mixed density mass in the posterior upper outer left breast measuring at least 3.7 cm corresponding with the palpable and tender lump. There was also skin thickening compatible wit h benign posttreatment changes. Arterial calcifications are incidentally noted as well. The S-shaped biopsy marker is not visible on any of the acquired views. IMPRESSION: Benign postoperative changes in left breast with a new 4.5 cm complex fluid collection compatible wit h a seroma. Recommend clinical management. At the discretion of the patient's surgeon, MRI could be c onsidered if there is a clinical concern for local recurrence. BI-RADS Category 2 Benign findings Recommend clinical management and in the absence of any clinically suspicious findings, routine scree raissa bilateral mammography which will next be due after 06/28/2021. Patient entered into a reminder s ystem with targeted due date for next mammogram. Electronically signed by: Jessica Mendenhall MD (11/02/2020 6:01 PM) [id number]
== END ==
LOC: US 13:53
PROVIDERS: ATTEND Surgery
DX: R92.8 Other abnormal and inconclusive findings on diagnostic imaging of breast (principal); N63.20 Unspecified lump in the left breast, unspecified quadrant
CPT/HCPCS: 76641; 77065

== ENCOUNTER → 2020-11-24 | Outpatient (CLI) | payer MEDICARE ==
[2020-08-30 11:00] VITALS: BP 90/48
--- NOTE | 2020-11-24 17:14 | KCIC ---
EXAM: Lumbar spine, 2 views. HISTORY: Fusion. COMPARISON: 07/14/2020 FINDINGS: 2 views of the lumbar spine are obtained. There is instrumented posterior spinal fusion at L3-L5. Instrumentation consists of paired transpedicular screws screws at L3 and L5 and a right-sided screw at L4. There are disc space fusion devices at L4-L5 and L5-S1. There is slight lucency surroun ding the left L3 screw. There is mild dextroscoliosis centered at L3. There is grade 1 anterolisthesi s of L4 on L5, measuring 8 mm. There is grade 1 anterolisthesis of L5 on S1, measuring 7 mm. There is grade 1 anterolisthesis of L3 on L4, measuring 3 mm. There is aortic atherosclerosis. There are chol ecystectomy clips. There is left nephrolithiasis. IMPRESSION: 1. Instrumented posterior spinal fusion at L3-L5 and disc space fusion device placement at L4-S1. The re is slight lucency surrounding the left L3 screw. 2. Lumbar hyperlordosis, mild scoliosis and grade 1 anterolisthesis at the mid lower lumbar levels. T his is similar compared to the preoperative study performed 07/14/2020. Electronically signed by: Ngoc Barr MD (11/24/2020 5:12 PM) [email or web address]
== END ==
LOC: KCIC 13:42
PROVIDERS: ATTEND Neurological Surgery
DX: M43.17 Spondylolisthesis, lumbosacral region (principal); M41.86 Other forms of scoliosis, lumbar region; N20.0 Calculus of kidney; Z90.49 Acquired absence of other specified parts of digestive tract; Z98.1 Arthrodesis status
CPT/HCPCS: 72100

== ENCOUNTER → 2020-12-11 | Outpatient (CLI) | payer MEDICARE ==
[2020-08-30 11:00] VITALS: BP 90/48
--- NOTE | 2020-12-11 15:25 | RAD ---
CT of the chest without contrast Indication: Pulmonary nodule Comparison study: [CT of the chest December 24, 2018] Technique: Multidetector CT imaging of the chest was performed without the administration of contrast Findings: Heart size is normal. No pericardial effusion is seen. Scattered small mediastinal lymph nodes are st able. Calcified subcarinal and right hilar adenopathy similar. No pericardial effusion is identified. There is no pneumothorax, pleural effusion, or focal consolidative infiltrate. Small calcified pulmo nary granulomata are noted. Calcified nodule in the right lower lobe is stable consistent with calcif ied granuloma. Irregular nodule along the major fissure is stable and likely an intrapulmonary lymph node (axial image 138). There is a new groundglass density nodule in the right lower lobe measuring 4 mm in diameter (axial image 142). No other new or enlarging nodules or masses are identified. Limite d visualization of the upper abdomen demonstrates left nephrolithiasis. Evidence of prior granulomato us disease involving the spleen noted. IMPRESSION: 1. New 4 mm groundglass nodule, right lower lobe. 6 month follow-up CT scan recommended 2. No other new or acute cardiopulmonary process is identified CT DOSING PQRS STATEMENT: One or more of the following individualized dose reduction techniques were utilized for this examinat ion: 1. Automated exposure control 2. Adjustment of the mA and/or kV according to patient size 3. Use of iterative reconstruction technique Electronically signed by: Jonathan Paul MD (12/11/2020 3:22 PM) [email or web address]
== END ==
LOC: CT 09:53
PROVIDERS: ATTEND Internal Medicine Hematology & Oncology
DX: R91.1 Solitary pulmonary nodule (principal); N20.0 Calculus of kidney
CPT/HCPCS: 71250

== ENCOUNTER → 2021-06-15 | Outpatient (CLI) | payer MEDICARE ==
[2020-08-30 11:00] VITALS: BP 90/48
[~2021-06-15] MED LIST changes: +DOCU-148 PO; -DOCU-153 PO
--- NOTE | 2021-06-15 17:10 | KCIC ---
EXAMINATION: MRI RIGHT LOWER EXTREMITY JOINT WITHOUT INDICATIONS: Generalized right knee pain. TECHNIQUE: Multiplanar multisequence MRI of the right knee was obtained without contrast. COMPARISON: Right knee radiograph 06/11/2021 FINDINGS: MENISCI: There is a lateral meniscus tear with radial component at the posterior root horn junction and a horizontal component extending through the body, resulting in a fragmented appearance of the chris dy. The medial meniscus is intact. LIGAMENTS: The anterior and posterior cruciate ligaments are intact. The medial collateral ligament and lateral collateral ligament complex are intact. EXTENSOR MECHANISM: The quadriceps and patellar tendons are intact. Fat pads are normal. Retinacula are intact. BONES AND CARTILAGE: There is full-thickness or near full-thickness cartilage loss along the lateral patellar facet and lateral trochlea, deep partial-thickness cartilage loss elsewhere in the patellof emoral compartment. There are small subchondral cysts along the patella. There is. Probable diffuse d eep partial-thickness cartilage loss throughout the lateral compartment and superficial and deep part ial-thickness cartilage loss in the medial compartment. There are tricompartmental osteophytes. No ac elin fracture. OTHER: Large joint effusion with synovitis.. No Raman cyst. Muscles and remaining tendons are intact . IMPRESSION: 1. Lateral meniscus tear. 2. Tricompartmental cartilage loss, greatest in the patellofemoral compartment where there is full-th ickness or near full-thickness cartilage loss. 3. Large joint effusion with synovitis. Electronically signed by: Dora Mcclain MD (06/15/2021 5:07 PM) [id number]
== END ==
LOC: KCIC MRI 12:58
PROVIDERS: ATTEND Orthopaedic Surgery
DX: S83.281A Other tear of lateral meniscus, current injury, right knee, initial encounter (principal); S83.8X1A Sprain of other specified parts of right knee, initial encounter; M25.461 Effusion, right knee; X58.XXXA Exposure to other specified factors, initial encounter; Y93.89 Activity, other specified; Y92.89 Other specified places as the place of occurrence of the external cause; Y99.8 Other external cause status
CPT/HCPCS: 73721

== ENCOUNTER 2021-07-06 10:33 | Day surgery (SDC) | payer MEDICARE ==
[~2021-07-06] VITALS: Ht 165.1 cm; Wt 63.6 kg
[~2021-07-06 10:33] MED LIST changes: +CYCL10TA19 PO; -CYCL10TA2 PO; +HYDROmorphone 2 MG/ML VIAL IVP PRN; +IV RINGERS,LACTATED 1000ML 1,000 ML IV SCH; +MORPHINE SULFATE 2 MG/ML INJ. IVP PRN; +PROCHLORPERAZINE 10 MG/2 ML VIAL. IVP PRN; +ceFAZolin SODIUM IV Push 1 GM VIAL. IVP PRN; +fentaNYL PF VIAL 100 MCG/2 ML VIAL IVP PRN
[2021-07-06] MEDS ORDERED: MIDAZOLAM HCL/PF 2 MG/2 ML VIAL. ONE (11:05)
[2021-07-06] MEDS ORDERED: ROPIVacaine 0.5% PF 20 ML VIAL. ONE (11:05)
[2021-07-06 11:08] VITALS: BP 150/69
[2021-07-06] MEDS ORDERED: INSULIN LISPRO 100 UNIT/ML 3ML VIAL for OP,RR ONLY. SQ PRN (11:15)
[2021-07-06] MEDS ORDERED: DEXAMETHASONE SOD PHOS 4 MG/ML VIAL ONE ×2 (11:25→11:54)
[2021-07-06] MEDS ORDERED: FAMOTIDINE 20 MG/2 ML VIAL ONE (11:25)
[2021-07-06] MEDS ORDERED: ONDANSETRON PF 4 MG/2 ML VIAL. ONE (11:54)
[2021-07-06] MEDS ORDERED: LIDOCAINE 2% PF 5 ML VIAL. ONE (11:54)
[2021-07-06] MEDS ORDERED: fentaNYL PF VIAL 100 MCG/2 ML VIAL ONE (11:54)
[2021-07-06] MEDS ORDERED: PROPOFOL 10 MG/ML (20ML) VIAL. IV ONE (11:54)
[2021-07-06] MEDS ORDERED: SEVOFLURANE > 120 MINUTES. IH ONE (11:54)
[2021-07-06] MEDS ORDERED: BUPIVACAINE-EPI 0.5% 30 ML VIAL KIT. ONE (12:05)
[2021-07-06] MEDS ORDERED: OXYC-317 PO (12:13)
--- NOTE | 2021-07-06 12:16 | DISCH ---
DISCHARGE INSTRUCTIONS Condition on Discharge Condition on Discharge: Stable Activity After Discharge Activity Instructions for Disc: Other, see below (Slow advance to activities as tolerated elevate leg when not up and around to help swelling) Bathing Instructions: Shower-keep dressing dry Exercise Instruction after Dis: Progress as tolerated Driving Instructions after Dis: No driving for 2 weeks Weight Bearing Status after Di: No restrictions Diet after Discharge Diet after Discharge: Regular Additional Diet Restrictions: resume home diet Wound Incision Care Wound/Incision Care: Ice to area for comfort, Keep wound elevated (Elevate knee and foot if not ambulatory, ice as needed), Change dressing (May remove dressings in 3 days may then shower no soaking until follow-up wound check) Wound Care Equipment: Dressings Contacting the DRPaula after DC Call your doctor for: Concerns you may have Follow-Up Follow up with: Dr. Merino or Dao 10 days postop Treatment/Equipment after DC Adaptive Equipment Issued: Brace/splint JAYLA MERINO MD Jul 06, 2021 12:16
[2021-07-06] MEDS ORDERED: NEOSTIGMINE METHYLSULFATE 5 MG/5 ML SYRINGE. ONE (12:53)
[2021-07-06] MEDS ORDERED: GLYCOPYRROLATE 1 MG/5 ML VIAL. ONE (12:53)
[2021-07-06] MEDS ORDERED: PHENYLEPHRINE in 0.9% NACL PF 1 MG/10 ML SYRINGE. IV ONE (13:04)
[2021-07-06] MEDS: fentaNYL PF VIAL 100 MCG/2 ML VIAL IVP PRN ×3 (13:54→14:25)
--- NOTE | 2021-07-06 13:59 | PDOC4 ---
Operative Note Operative Note Date of surgery: 07/06/2021 Preoperative diagnosis: Right knee lateral meniscus tear and symptomatic hardware both medially and laterally on right ankle from previous ankle fracture fixation Postoperative diagnosis: Same with the additional finding of a medial parapatellar plica in the right knee Operative procedure: Right knee arthroscopy partial lateral meniscectomy excision medial parapatellar plica; plate and screw hardware removal from distal fibula and screws removed from medial malleolus Surgeon: Wilber Assist: Guillermo fried assist Anesthesia: General plus block Estimated blood loss: 10 cc Complications: None Operative indications: Patient is 60-year-old female with lateral mechanical type knee pain with MRI confirmation of the lateral meniscus tear. We had discussed the structure and function of the meniscus the possibility of operative versus nonoperative treatment and the fact that we are treating mechanical issues with the meniscus tear and I cannot undo any degenerative type conditions or the symptoms that go along with that and those would have to be treated on an ongoing symptomatic fashion. We also talked about the possibility of infection nerve or blood vessel damage medical or other anesthetic complications among others. She also notes symptomatic hardware in the right ankle which has been present for years and rubs on her shoes and is tender with activity. I had covered with her the possibility of continuing to live with the hardware issues versus the possibility of removal that it may not take away all of her pain and there is a possibility of surgical complication including infection and continued pain among others she does wish to proceed with both the knee arthroscopy and hardware removal of procedure is having given informed consent. Operative text: Patient was identified procedure verified patient placed in the supine position on the operating table. After adequate amounts of general anesthesia plus a pre-existing regional block was obtained the right lower extremity was prepped and draped in standard sterile fashion with the thigh t ourniquet. After timeout was performed patient procedure identified and verified the right lower extremity was exsanguinated by Esmarch bandage tourniquet inflated to 250 mmHg and a lateral portal was established medial portal established using spinal needle localization and the knee joint was systematically examined. She was noted to have significant patellofemoral degenerative change with no debridement required and a large medial parapatellar plica which was excised. No loose bodies noted in the gutters or suprapatellar pouch. Medial meniscus was probed and found to be intact as was the anterior cruciate and posterior cruciate ligaments. The lateral meniscus as expected was noted to have a tear mostly involving its free edge and undersurface involving the body and posterior horn primarily. Some free edge fraying also noted in the anterior horn all of which were trimmed back to stable tissue and radius appropriately to avoid any ongoing stress riser and any cartilage fragments removed with the arthroscopic shaver. The knee was drained of arthroscopic fluid portals closed with nylon suture. Attention was then turned to hardware removal where an incision was made over the distal fibula dissection carried out down to the plate and screws and all screws were removed there was some bony overgrowth over the plate which was debrided with an osteotome and with rongeurs after the plate was removed. Healing of the distal fibula confirmed and no compromise from the hardware removal. A curvilinear incision was made over the medial malleolus tip and 2 cannulated screws were removed. Ankle was noted to be stable with full range of motion through irrigation carried out normal saline solution subcutaneous closure with buried Vicryl suture skin closure with nylon suture. Sterile soft dressings were placed on both the ankle and the knee followed by an Desmond wrap toes were noted to be warm pink following deflation of the tourniquet. Patient was returned to recovery room in stable condition having tolerated procedure well. Guillermo fried assist assisted in patient positioning prepping draping retraction closure and dressings. JAYLA CAMACHO MD Jul 06, 2021 13:59
[2021-07-06] MEDS ORDERED: INSULIN LISPRO 100 UNIT/ML 3ML VIAL for OP,RR ONLY. SQ ONE (14:25)
[2021-07-06] MEDS ORDERED: oxyCODONE/APAP 10/325 1 TAB TABLET PO PRN (14:30)
[2021-07-06 14:55] VITALS: BP 133/70
== END 2021-07-06 15:10 | disposition home or self-care (01) ==
LOC: SURG 10:33
PROVIDERS: ATTEND Orthopaedic Surgery
DX: S83.281A Other tear of lateral meniscus, current injury, right knee, initial encounter (principal); I25.10 Atherosclerotic heart disease of native coronary artery without angina pectoris; I10 Essential (primary) hypertension; E78.00 Pure hypercholesterolemia, unspecified; M19.90 Unspecified osteoarthritis, unspecified site; M81.0 Age-related osteoporosis without current pathological fracture; E11.9 Type 2 diabetes mellitus without complications; F41.9 Anxiety disorder, unspecified; F32.9 Major depressive disorder, single episode, unspecified; F17.210 Nicotine dependence, cigarettes, uncomplicated; Z86.73 Personal history of transient ischemic attack (TIA), and cerebral infarction without residual deficits; Z85.3 Personal history of malignant neoplasm of breast; Z88.8 Allergy status to other drugs, medicaments and biological substances; Z79.899 Other long term (current) drug therapy; Z98.890 Other specified postprocedural states; X58.XXXA Exposure to other specified factors, initial encounter; Y93.89 Activity, other specified; Y92.89 Other specified places as the place of occurrence of the external cause; Y99.8 Other external cause status
CPT/HCPCS: 20680; 29881; 82962; A4930; A6253; A6402; A6449; J0690; J1100; J1815; J2250; J2370; J2405; J2704; J2710; J2795; J3010; J3490; A6455

== ENCOUNTER → 2021-08-07 | Outpatient (CLI) | payer MEDICARE ==
[~2021-08-07] MED LIST changes: -HYDROmorphone 2 MG/ML VIAL IVP PRN; -IV RINGERS,LACTATED 1000ML 1,000 ML IV SCH; -MORPHINE SULFATE 2 MG/ML INJ. IVP PRN; +OXYC-317 PO; -PROCHLORPERAZINE 10 MG/2 ML VIAL. IVP PRN; -ceFAZolin SODIUM IV Push 1 GM VIAL. IVP PRN; -fentaNYL PF VIAL 100 MCG/2 ML VIAL IVP PRN
--- NOTE | 2021-08-07 14:07 | KCIC ---
Bilateral diagnostic digital mammograms with 3-D tomosynthesis: Reason for examination: History of left breast cancer with lumpectomy and radiation therapy. Follow-u p exam. Comparison is made to previous studies dated back to 10/17/2017. Bilateral mammograms in CC and oblique projections were obtained with 2-D imaging and 3-D tomosynthes is imaging on a Siemens Inspiration unit and reviewed on the workstation. Interpretation was made wit h the benefit of CAD. The skin and nipples show no abnormalities. No abnormal axillary lymph nodes are seen. The breast par enchyma is heterogeneously dense. (Breast density: Category C.) There continue to be post operative a nd post radiation changes in the left breast. There continues to be a small nodule again seen at the 9:00 B position of the left breast which is unchanged. There are no new dominant masses, suspicious c alcifications or architectural distortion. Benign calcifications are present. Impression: Postop and postradiation changes in the left breast. No evidence of new or recurrent malignancy. Marvel mmend routine follow-up. Your patient's mammogram demonstrates that she has dense breast tissue (breast density category C or D), which could hide abnormalities, and if she has other risk factors for breast cancer that have bee n identified, she might benefit from supplemental screening tests that may be suggested by you as her ordering physician. Dense breast tissue, in and of itself, is a relatively common condition. Therefo re, this information is not provided to cause undue concern, but rather to raise your awareness and t o promote discussion with your patient regarding the presence of other risk factors, in addition to d ense breast tissue. Your patient's mammography results will be sent to her. BI-RAD Category 2: Benign. "Our facility is accredited by the [employer] Mammography Program." This patient's information has been entered into a reminder system for the patient to be notified wit h the results of her examination and a target date for the next mammogram. Electronically signed by: Waleska Adhikari MD (08/07/2021 2:05 PM) [email or web address]
== END ==
LOC: KCIC MAMMO 12:50
PROVIDERS: ATTEND Surgery
DX: N63.22 Unspecified lump in the left breast, upper inner quadrant (principal)
CPT/HCPCS: 77066; G0279; 77062

== ENCOUNTER → 2021-12-28 | Outpatient (CLI) | payer MEDICARE, OTHER ==
--- NOTE | 2021-12-28 13:20 | KCIC ---
CT chest without contrast dated 12/28/2021 COMPARISON: 12/11/2020 Clinical data indication: Follow-up lung nodule TECHNIQUE: Contiguous axial imaging the chest was performed without the administration of intravenous contrast. One or more of the following individualized dose reduction techniques were utilized for this examinat ion: 1. Automated exposure control 2. Adjustment of the mA and/or kV according to patient size 3. Use of iterative reconstruction technique FINDINGS: Heart size within normal limits. No pericardial effusion. Coronary artery calcifications. Heart size is upper limits of normal. No pericardial effusion. Coronary artery calcifications. There are promine nt mitral valve calcifications with ASD closure device in place. Mild ectasia of the ascending thorac ic aorta measuring 3.7 cm transverse. No mediastinal, hilar or axillary lymphadenopathy. There is chandrika cified subcarinal and right hilar lymph nodes. Central airways are patent. There are a few scattered calcified granuloma. Vague groundglass nodular density in the right lower lobe on image 22 measures 4 mm, unchanged. 4 mm noncalcified nodule along the right major fissure on image 99 is stable. There is also a nodule along the minor fissure on the right on image 102 that measures 4 mm, unchanged. No new pulmonary nodule or mass. No pleural effusio n. There is mild diffuse bronchial wall thickening. Images of the upper abdomen unremarkable. The gallbladder is surgically absent. No acute bony abnorma lity. Multilevel spondylosis. IMPRESSION: 1. Small right-sided noncalcified pulmonary nodules are stable from prior study, nonspecific. Continu ed follow-up imaging may be warranted to ensure stability. 2. No new or acute findings. 3. Coronary artery calcifications. Electronically signed by: Eddie Brush MD (12/28/2021 1:17 PM) [email or web address]
== END ==
LOC: KCIC CT 10:47
PROVIDERS: ATTEND Nurse Practitioner
DX: R91.8 Other nonspecific abnormal finding of lung field (principal); I25.10 Atherosclerotic heart disease of native coronary artery without angina pectoris; I77.810 Thoracic aortic ectasia; M47.814 Spondylosis without myelopathy or radiculopathy, thoracic region; Z90.49 Acquired absence of other specified parts of digestive tract
CPT/HCPCS: 71250